=== PATIENT | male | born 1935 | race Caucasian/White ===

== ENCOUNTER 2018-04-08 16:27 | Observation (INO) ==
[2018-04-08 17:02] LABS: Basophils # 0.1 K/mcL (0.0-0.2); Basophils % 0.6 %; Eosinophils # 0.1 K/mcL (0.0-0.6); Hematocrit 43.9 % (37.5-50.1); Hemoglobin 14.4 g/dL (12.9-16.9); Immature Granulocytes % 0.1 % (0-4); Lymphocytes # 2.2 K/mcL (0.6-4.6); Lymphocytes % 28.5 %; Mean Corpuscular HGB Conc 32.8 g/dL (31.6-35.5); Mean Corpuscular Hemoglobin 31.8 pg (28.0-33.3); Mean Corpuscular Volume 96.9 fL (83.0-100.0); Mean Platelet Volume 10.1 fL (9.4-12.4); Monocytes # 0.9 K/mcL (0.0-1.3); Monocytes % 11.5 %; Neutrophils # 4.6 K/mcL (1.6-8.9); Platelet Count 249 K/mcL (140-400); Red Blood Count 4.53 M/mcL (4.19-5.50); Red Cell Distribution Width 15.4 % (11.5-14.5); Segmented Neutrophils % 58.3 %
[2018-04-08 17:25] LABS: Troponin I < 0.03 ng/mL (< 0.04)
[2018-04-08 17:30] LABS: Alanine Aminotransferase 20 Units/L (7-52); Albumin/Globulin Ratio 1.3 (1.1-2.2); Alkaline Phosphatase 60 Units/L (34-104); Aspartate Amino Transferase 28 Units/L (13-39); BUN/Creatinine Ratio 19 (6-26); Bilirubin,Total 0.5 mg/dL (0.3-1.0); Blood Urea Nitrogen 13 mg/dL (8-23); Calcium 8.5 mg/dL (8.6-10.3); Carbon Dioxide 27 mEq/L (23-29); Chloride 103 mEq/L (98-107); Glucose 95 mg/dL (70-105); Osmolality,Calculated 282 (280-300); Potassium 4.3 mEq/L (3.5-5.1); Sodium 136 mEq/L (136-145); eGFR For African Americans > 60 (> 60); eGFR For Non-African Americans > 60 (> 60)
--- NOTE | 2018-04-08 18:02 | Emergency Department Note ---
Disposition Clinical Impression: Chest pain, rule out acute myocardial infarction Chest pain Qualifiers: Chest pain type: unspecified Qualified Code(s): R07.9 - Chest pain, unspecified Disposition: Still a Patient Condition: Fair Time of Disposition: 20:18 Chest Pain HPI - General Chief Complaint: ED Chest Pain Stated Complaint: chest pain Time Seen by Provider: 04/08/18 16:44 Source: patient Limitations: no limitations - History of Present Illness HPI Narrative: Mr. Brown is an 83-year-old gentleman who presents from an appointment with Dr. Coe for c/o pressure-like chest pain 2-3 days that began while sitting down. His PMH is significant for [place] and CVA about 2 years ago; states he has been taking xarelto for about 1 year. His pain is located bilaterally across lower chest, is constant, and does not radiate to arms, neck, or jaw. He denies having similar chest pain in the past. Denies strenuous activity prior to or during onset of chest pain. Chest pain not worse with exertion and he does not endorse any aggravating factors; denies anything helps with chest pain. Reports associated nausea and increased fatigue for a few days prior to onset of chest pain. Associated symptoms of fevers, chills, confusion, lightheadedness, dizziness, shortness of breath, or dyspnea are denied. States his last cardiac stress test was about 1 year ago at [place]. Severity scale (1-10): 8 - Related Data Home Medications Medication Instructions Recorded Confirmed Alendronate Sodium [Fosamax] 70 mg PO QWEEK 04/08/18 04/08/18 Atorvastatin [Lipitor] 40 mg PO HS 04/08/18 04/08/18 Calcium Carb, Citrate/Vit D3 1 tab PO DAILY 04/08/18 04/08/18 [Calcium + D3 ER Tablet] OxyCODONE Immed Rel [Roxicodone 20 20 mg PO QID 04/08/18 04/08/18 MG] Rivaroxaban [Xarelto] 20 mg PO DAILY 04/08/18 04/08/18 Allergies Allergy/AdvReac Type Severity Reaction Status Date / Time lovastatin AdvReac Cramping Verified 04/08/18 18:34 of the Muscles All systems ED: reviewed and negative except as stated. Review of Systems: As Per HPI Constitutional: Reports: as per HPI. Denies: fever, chills Cardiovascular: Reports: as per HPI, chest pain. Denies: dyspnea on exertion, syncope Respiratory: Reports: as per HPI Gastrointestinal: Reports: as per HPI, nausea. Denies: vomiting Neurological: Reports: as per HPI. Denies: confusion Chest Pain PMH - Past Medical History Medical history: Reports: CVA, GERD, hyperlipidemia, hypertension, osteoporosis , other Psychiatric history: Reports: no psych history - Social History Smoking Status: Former smoker Alcohol use: Reports: occasionally Drug use: Reports: none Physical Exam - General Limitations: no limitations General appearance: alert - Head Head exam: atraumatic - Eye Eye exam: Present: normal appearance. Absent: scleral icterus - Neck Neck exam: Present: normal inspection - Chest Chest inspection: Present: normal inspection, symmetric chest wall rise. Absent : tenderness - Respiratory Respiratory exam: Present: normal lung sounds bilaterally. Absent: respiratory distress, wheezes - Cardiovascular Cardiovascular exam: Present: bradycardia (Sinus), normal heart sounds, +S1, +S2 - Abdominal Exam Abdominal exam: Present: soft, Non-Tender. Absent: distention, guarding, rebound, rigidity - Extremities Exam Extremities exam: Present: normal inspection, full ROM - Neurological Exam Neurological exam: Present: alert, oriented X3. Absent: motor sensory deficit - Psychiatric Psychiatric exam: Present: normal affect, normal mood - Skin Skin exam: Present: warm, dry, intact Course Vital Signs Temperature 97.7 F 04/08/18 16:36 Pulse Rate 50 04/08/18 16:36 Respiratory Rate 20 04/08/18 16:36 Blood Pressure 164/83 04/08/18 16:36 O2 Sat by Pulse Oximetry 97 04/08/18 16:36 Temperature 98.0 F 04/10/18 11:01 Pulse Rate 53 04/10/18 11:01 Respiratory Rate 17 04/10/18 11:01 Blood Pressure 154/67 04/10/18 11:01 O2 Sat by Pulse Oximetry 94 04/10/18 11:01 Oxygen Delivery Oxygen Delivery Room Air Chest Pain - MDM Narrative Medical decision making narrative: Mr. Brown is an 83-year-old gentleman PMH of KS and CVA on Xarelto presented to the emergency department with chest pain 2-3 days. EKG today shows changes from previous EKG including: mild ST elevation in leads III and aVF and TWI in lead aVF. Patient was given chewable 324mg aspirin in the department and placed on filter assembler. CBC and CMP within normal limits (calcium 8.5). First troponin < 0.03. Hospitalist Dr. Alexander contacted regarding admission for further care and management. Case discussed with on-call intrusion analyst Dr. Ralf Blanco. Heparin drip started in ED. - Medical Records Medical records reviewed: Yes I reviewed the patient's medical records. - Lab Data Lab results reviewed: Yes I reviewed the patient's lab results. Result diagrams: 04/10/18 06:36 04/10/18 06:36 Lab Results 04/08/18 04/08/18 04/08/18 Range/Units 16:47 16:47 16:47 WBC 7.8 (4.3-11.1) K/mcL RBC 4.53 (4.19-5.50) M/mcL Hgb 14.4 (12.9-16.9) g/dL Hct 43.9 (37.5-50.1) % MCV 96.9 (83.0-100.0) fL MCH 31.8 (28.0-33.3) pg MCHC 32.8 (31.6-35.5) g/dL RDW 15.4 H (11.5-14.5) % Plt Count 249 (140-400) K/mcL MPV 10.1 (9.4-12.4) fL Immature Gran % 0.1 (0-4) % Seg Neutrophils % 58.3 % Lymphocytes % 28.5 % Monocytes % 11.5 % Eosinophils % 1.0 % Basophils % 0.6 % Neutrophils # 4.6 (1.6-8.9) K/mcL Lymphocytes # 2.2 (0.6-4.6) K/mcL Monocytes # 0.9 (0.0-1.3) K/mcL Eosinophils # 0.1 (0.0-0.6) K/mcL Basophils # 0.1 (0.0-0.2) K/mcL PT 13.4 H (9.4-12.1) Seconds INR 1.2 APTT 31.5 (26.0-36.0) Seconds Sodium 136 (136-145) mEq/L Potassium 4.3 (3.5-5.1) mEq/L Chloride 103 (98-107) mEq/L Carbon Dioxide 27 (23-29) mEq/L BUN 13 (8-23) mg/dL Creatinine 0.70 (0.70-1.30) mg/dL Est GFR ( Amer) > 60 (> 60) Est GFR (Non-Af Amer) > 60 (> 60) BUN/Creatinine Ratio 19 (6-26) Glucose 95 (70-105) mg/dL Calculated Osmolality 282 (280-300) Calcium 8.5 L (8.6-10.3) mg/dL Total Bilirubin 0.5 (0.3-1.0) mg/dL AST 28 (13-39) Units/L ALT 20 (7-52) Units/L Alkaline Phosphatase 60 (34-104) Units/L Troponin I < 0.03 (< 0.04) ng/mL Serum Total Protein 7.0 (6.4-8.9) g/dL Albumin 4.0 (3.5-5.7) g/dL Globulin 3.0 (2.4-3.5) g/dL Albumin/Globulin Ratio 1.3 (1.1-2.2) - EKG Data EKG attestation: Yes I reviewed and interpreted this EKG. EKG results narrative: Comparison EKG 07/03/2016. Sinus bradycardia. First degree AV block. Multiple PACs and PVCs. Mild ST elevation leads III and aVF. TWI in aVF. Heart Score - Score History: Moderately Suspicious EKG: Significant ST-Depression Age: Greater than 65 Risk Factors: 1-2 risk factors Troponin: Less than normal limit HEART Score Total: 6
[2018-04-08] MEDS ORDERED: Aspirin 81 MG TAB.CHEW PO STA (18:05)
--- NOTE | 2018-04-08 18:10 | Emergency Department Note ---
Disposition Clinical Impression: Chest pain, rule out acute myocardial infarction Disposition: Admitted As Inpatient Condition: Fair Referrals: Beth Baker WEIGHT LOSS CENTRE MANAGER [Partnered Physician] - Forms: ED Satisfaction Letter Time of Disposition: 18:00 Chest Pain HPI - General Chief Complaint: ED Chest Pain Stated Complaint: chest pain Time Seen by Provider: 04/08/18 16:44 Source: patient Limitations: no limitations Vital Signs Reviewed: Yes Nursing Notes Reviewed: Yes - History of Present Illness Severity scale (1-10): 8 - Related Data Home Medications Medication Instructions Recorded Confirmed Atorvastatin [Lipitor] 40 mg PO DAILY 06/25/16 06/25/16 Calcium Carbonate/Vitamin D3 1 each PO DAILY 06/25/16 06/25/16 [Calcium 500 + D Tablet] Celecoxib [Celebrex] 200 mg PO DAILY 06/25/16 06/25/16 Docusate [Colace] 200 mg PO DAILY 06/25/16 06/25/16 Oxycodone HCl [Roxicodone 30 MG 30 mg PO Q4H 06/25/16 06/25/16 Immed Release] Sennosides [Senna] 8.6 mg PO DAILY 06/25/16 06/25/16 Previous Rx's Medication Instructions Recorded Lidocaine Patch [Lidoderm 5% patch] 1 each TP DAILY PRN #3 adh..patch 03/02/18 Orphenadrine [Norflex] 100 mg PO BID #6 tablet.er 03/02/18 Tramadol HCl [Ultram] 50 mg PO TID PRN 3 Days #9 tab 03/02/18 Allergies Allergy/AdvReac Type Severity Reaction Status Date / Time lovastatin AdvReac Cramping Verified 04/08/18 16:35 of the Muscles Chest Pain PMH - Past Medical History Medical history: Reports: CVA, GERD, hyperlipidemia, hypertension, osteoporosis , other Psychiatric history: Reports: no psych history - Social History Smoking Status: Former smoker Alcohol use: Reports: occasionally Drug use: Reports: none Physical Exam - General Limitations: no limitations General appearance: alert Course Vital Signs Temperature 97.7 F 04/08/18 16:36 Pulse Rate 50 04/08/18 16:36 Respiratory Rate 20 04/08/18 16:36 Blood Pressure 164/83 04/08/18 16:36 O2 Sat by Pulse Oximetry 97 04/08/18 16:36 Temperature 97.7 F 04/08/18 16:36 Pulse Rate 68 04/08/18 18:01 Respiratory Rate 20 04/08/18 18:01 Blood Pressure 130/97 04/08/18 18:01 O2 Sat by Pulse Oximetry 98 04/08/18 18:01 Oxygen Delivery Oxygen Delivery Room Air Chest Pain - Lab Data Result diagrams: 04/08/18 16:47 04/08/18 16:47 Lab Results 04/08/18 04/08/18 Range/Units 16:47 16:47 WBC 7.8 (4.3-11.1) K/mcL RBC 4.53 (4.19-5.50) M/mcL Hgb 14.4 (12.9-16.9) g/dL Hct 43.9 (37.5-50.1) % MCV 96.9 (83.0-100.0) fL MCH 31.8 (28.0-33.3) pg MCHC 32.8 (31.6-35.5) g/dL RDW 15.4 H (11.5-14.5) % Plt Count 249 (140-400) K/mcL MPV 10.1 (9.4-12.4) fL Immature Gran % 0.1 (0-4) % Seg Neutrophils % 58.3 % Lymphocytes % 28.5 % Monocytes % 11.5 % Eosinophils % 1.0 % Basophils % 0.6 % Neutrophils # 4.6 (1.6-8.9) K/mcL Lymphocytes # 2.2 (0.6-4.6) K/mcL Monocytes # 0.9 (0.0-1.3) K/mcL Eosinophils # 0.1 (0.0-0.6) K/mcL Basophils # 0.1 (0.0-0.2) K/mcL Sodium 136 (136-145) mEq/L Potassium 4.3 (3.5-5.1) mEq/L Chloride 103 (98-107) mEq/L Carbon Dioxide 27 (23-29) mEq/L BUN 13 (8-23) mg/dL Creatinine 0.70 (0.70-1.30) mg/dL Est GFR ( Amer) > 60 (> 60) Est GFR (Non-Af Amer) > 60 (> 60) BUN/Creatinine Ratio 19 (6-26) Glucose 95 (70-105) mg/dL Calculated Osmolality 282 (280-300) Calcium 8.5 L (8.6-10.3) mg/dL Total Bilirubin 0.5 (0.3-1.0) mg/dL AST 28 (13-39) Units/L ALT 20 (7-52) Units/L Alkaline Phosphatase 60 (34-104) Units/L Troponin I < 0.03 (< 0.04) ng/mL Serum Total Protein 7.0 (6.4-8.9) g/dL Albumin 4.0 (3.5-5.7) g/dL Globulin 3.0 (2.4-3.5) g/dL Albumin/Globulin Ratio 1.3 (1.1-2.2) Attestation Statement - Attestation Attestation: I, Ralf Gonzalez, examined this patient and my medical decision-making was reviewed with the ALMOND SORTER/PA/Advanced Practice Nurse/Resident Physician. I agree with the documented findings, disposition and treatment plan as described except to the extent set forth below. 83-year-old male presents emergency Department with concerns of chest pain. Patient was sent to the emergency department by his automotive paint technician for chest pain that was constant in the center of his chest. He reports associated nausea and increased fatigue over the past 2-3 days. Patient states his last stress test was one year ago at [facility]. He denies recent syncope. His Cymbalta was increased one week ago however his symptoms had started worsening prior to increasing his medication. Patient has not vomited he, he denies abdominal pain, diarrhea, rash, recent trauma. EKG shows a sinus bradycardia with multiple PVCs and PACs with and intraventricular conduction delay with flipped T-wave in lead aVF as well as ST elevation and downsloping in lead 3 and aVF. There is no corresponding ST depression and I do not believe that this is a STEMI. His pain has been constant over the past 2-3 days. Vital signs are stable in the emergency department. He had a negative initial troponin. Patient will be admitted to the hospitalist for further care and evaluation.
[2018-04-08] MEDS ORDERED: *HR* Heparin 5,000 UNIT/ML VIAL IVP ONE (18:16)
[2018-04-08] MEDS ORDERED: *HR* Heparin 5,000 UNIT/ML VIAL IVP PRN ×2 (18:16)
[2018-04-08] MEDS ORDERED: Heparin 25,000 UNIT/500 ML D5W 25,000 UNIT/500 ML BAG IVC SCH (18:30)
[2018-04-08 18:59] LABS: INR 1.2; Prothrombin Time 13.4 Seconds (9.4-12.1)
[2018-04-08 19:01] LABS: Activated Partial Thrombo Time 31.5 Seconds (26.0-36.0)
[2018-04-08] MEDS ORDERED: *HR* OxyCODONE Immed Rel 5 MG TABLET PO ONE (19:43)
--- NOTE | 2018-04-08 21:34 | Internal Med History&Physical ---
Date of Encounter: 04/08/18 Time of Encounter: 21:34 Internal Medicine - H&P: HPI Chief complaint: CP History of present illness: Mr. Brown is an 83-year-old male with PMH of [place] and CVA on xarelto presented to the emergency department with 3 days history of chest pain that is bilaterally located across lower chest, constant with no radiation to arms, neck, or jaw , no aggravating or alleviating factors associated nausea and increased fatigue. EKG today shows changes from previous EKG including: mild ST elevation in leads III and aVF and TWI in lead aVF. . First troponin < 0.03. . Heparin drip was started in ED. Past Med Surg Social Fam HX - Past Medical History Medical history: CVA, GERD, hyperlipidemia, hypertension, osteoporosis, other Psychiatric history: no psych history - Social History Smoking Status: Former smoker Smokeless Tobacco Status: No Alcohol use: occasionally Drug use: none Internal Medicine - H&P: Meds Alendronate Sodium [Fosamax] 70 mg PO QWEEK 04/08/18 [History] Atorvastatin [Lipitor] 40 mg PO HS 04/08/18 [History] Calcium Carb, Citrate/Vit D3 [Calcium + D3 ER Tablet] 1 tab PO DAILY 04/08/18 [ History] OxyCODONE Immed Rel [Roxicodone 20 MG] 20 mg PO QID 04/08/18 [History] Rivaroxaban [Xarelto] 20 mg PO DAILY 04/08/18 [History] 3 Allergy/AdvReac Type Severity Reaction Status Date / Time lovastatin AdvReac Cramping Verified 04/08/18 18:34 of the Muscles All Systems PM: A 10-system review of systems was performed and is negative for pertinent findings except as documented above in the HPI. - Constitutional Constitutional: fatigue, no chills, no fever(s), no night sweats - Cardiovascular Cardiovascular ROS IM: chest pain, dyspnea, no diaphoresis, no lightheadedness, no palpitations, no syncope - Respiratory Respiratory: dyspnea, no cough, no wheezing, no excessive phlegm production - Gastrointestinal Gastrointestinal: no abdominal pain, no diarrhea, no hematemesis, no hematochezia, no melena, no nausea, no vomiting - Neurological Neurological ROS: no confusion, no convulsions, no focal weakness, no numbness, no tingling, no tremor(s) - Constitutional Vitals: Temp Pulse Resp BP Pulse Ox 97.7 F 55 14 164/80 95 04/08/18 21:31 04/08/18 21:31 04/08/18 21:31 04/08/18 21:31 04/08/18 21:31 General appearance: Present: A&O X 3 - Head Head exam: Present: atraumatic, normocephalic - Neck Neck exam general surgery: Present: supple, trachea midline. Absent: lymphadenopathy - Respiratory Respiratory exam: Present: CTAB. Absent: accessory muscle use, rales, rhonchi, wheezes - Cardiovascular Cardiovascular exam: Present: RRR, +S1, +S2. Absent: diastolic murmur, gallop, rubs, systolic murmur - GI/Abdominal GI/Abdominal exam: Present: normal bowel sounds, soft, no peritoneal signs. Absent: distended, tenderness - Extremities Exam Extremities exam: Present: warm, radial pulses palpable and symmetrical. Absent : calf tenderness, cyanotic, pedal edema Internal Med - H&P Results - Labs CBC & Chem 7: 04/08/18 16:47 04/08/18 16:47 - Assessment and plan (1) Chest pain, rule out acute myocardial infarction Current Visit: Yes Status: Acute Assessment and plan: Chest pain with ECG changes R/O *CAD PLAN: - cardiac enzymes x 2 q 8 hr - EKG now and in AM - ASA - O2 by NC to keep SpO2 greater than 92% - UA - Urine toxic screen - CBCD, BMP in AM - Fasting lipids - Morphine 2 mg IV q 2-4 hr PRN chest pain - Tylenol 650 mg PO q 4-6 hr PRN headache - Home meds (check list) - Heparin drip - 2D Echo - Cardiology consult (2) Hypertension Current Visit: Yes Status: Acute Assessment and plan: Cont home meds. (3) Hyperlipidemia Current Visit: Yes Status: Acute Assessment and plan: Cont home meds, obtain FLP in AM (4) DVT prophylaxis Current Visit: Yes Status: Acute Assessment and plan: The patient was started on heparin drip for ACS. - Time Spent With Patient Total time spent is greater than 50% in coordination of care (as documented) at patient's floor/unit and/or counseling patient:
[2018-04-08] MEDS ORDERED: NON-FORMULARY MEDICATION 1 EACH EACH (Alendronate Sodium [Fosamax] 70 MG) PO SCH (22:45)
[2018-04-08] MEDS ORDERED: Acetaminophen 325 MG TABLET PO PRN (22:47)
[2018-04-08] MEDS ORDERED: Naloxone 0.4 MG/ML INJ IVP PRN (22:47)
[2018-04-08] MEDS ORDERED: *HR* HYDROcodone/Acet 5/325 mg TABLET PO PRN (22:47)
[2018-04-09] MEDS ORDERED: *HR* OxyCODONE Immed Rel 5 MG TABLET PO ONE (01:26)
[2018-04-09] MEDS ORDERED: *HR* Heparin 5,000 UNIT/ML VIAL SQ SCH (06:00)
[2018-04-09 06:38] LABS: Basophils % 0.6 %; Eosinophils # 0.2 K/mcL (0.0-0.6); Eosinophils % 2.6 %; Hematocrit 38.7 % (37.5-50.1); Hemoglobin 13.3 g/dL (12.9-16.9); Immature Granulocytes % 0.2 % (0-4); Lymphocytes # 2.4 K/mcL (0.6-4.6); Mean Corpuscular HGB Conc 34.4 g/dL (31.6-35.5); Mean Platelet Volume 10.7 fL (9.4-12.4); Monocytes % 14.4 %; Neutrophils # 3.1 K/mcL (1.6-8.9); Nucleated Red Blood Cells 0.3 /100 WBC (0); Platelet Count 233 K/mcL (140-400); Red Blood Count 4.03 M/mcL (4.19-5.50); Red Cell Distribution Width 15.1 % (11.5-14.5); Segmented Neutrophils % 46.2 %
[2018-04-09 07:00] LABS: Alanine Aminotransferase 17 Units/L (7-52); Albumin 3.6 g/dL (3.5-5.7); Albumin/Globulin Ratio 1.3 (1.1-2.2); Alkaline Phosphatase 57 Units/L (34-104); Aspartate Amino Transferase 22 Units/L (13-39); BUN/Creatinine Ratio 16 (6-26); Bilirubin,Total 0.5 mg/dL (0.3-1.0); Blood Urea Nitrogen 13 mg/dL (8-23); Calcium 8.8 mg/dL (8.6-10.3); Carbon Dioxide 28 mEq/L (23-29); Chloride 104 mEq/L (98-107); Chol/HDL Ratio 2.2 (0-4.9); Cholesterol 138 mg/dL (< 200); Globulin 2.7 g/dL (2.4-3.5); Glucose 82 mg/dL (70-105); HDL Cholesterol 63 mg/dL (40-59); LDL Cholesterol,Calculated 65 mg/dL (0-99); Magnesium 2.1 mg/dL (1.6-2.6); Osmolality,Calculated 287 (280-300); Phosphorous 3.7 mg/dL (2.7-4.5); Potassium 3.8 mEq/L (3.5-5.1); Sodium 139 mEq/L (136-145); Total Protein 6.3 g/dL (6.4-8.9); Triglycerides 49 mg/dL (< 150); eGFR For African Americans > 60 (> 60); eGFR For Non-African Americans > 60 (> 60)
[2018-04-09] MEDS: *HR* OxyCODONE Immed Rel 5 MG TABLET PO SCH ×4 (08:24→21:29)
--- NOTE | 2018-04-09 12:55 | Internal Med Progress Note ---
Date of Encounter: 04/09/18 Time of Encounter: 12:55 - Assessment and plan (1) Chest pain, rule out acute myocardial infarction Current Visit: Yes Status: Acute Assessment and plan: Troponins are negative 3 EKG with no acute changes I did discuss this case with cardiology LICENSED BONDSMAN Hugh House recommends cardiac stress test and consult cardiology as needed. Cardiac echo pending Patient will be LICENSED BONDSMAN after midnight and undergo nuclear stress test in the a.m. Heparin drip has been discontinued per recommendations of cardiology continue with Xarelto (2) Hypertension Current Visit: Yes Status: Chronic Assessment and plan: Stable Cont home meds. Qualifiers: Hypertension type: essential hypertension Qualified Code(s): I10 - Essential (primary) hypertension (3) Hyperlipidemia Current Visit: Yes Status: Acute Assessment and plan: Cont home statin Qualifiers: Hyperlipidemia type: unspecified Qualified Code(s): E78.5 - Hyperlipidemia , unspecified (4) DVT prophylaxis Current Visit: Yes Status: Acute Assessment and plan: Xarelto . - Time Spent With Patient Total time spent is greater than 50% in coordination of care (as documented) at patient's floor/unit and/or counseling patient: - Subjective Interval history: Patient was seen and examined at bedside. Presently patient has chest heaviness rates it a 1 or 2 out of 10 which she states has been constant midsternal nonradiating it has continued for the past few days. Discussed treatment plan patient verbalized agreement and understanding - Constitutional Vitals: Temp Pulse Resp BP Pulse Ox 98.1 F 59 16 112/63 94 04/09/18 11:13 04/09/18 11:13 04/09/18 11:13 04/09/18 11:13 04/09/18 11:13 General appearance: Present: A&O X 3 - Head Head exam: Present: atraumatic, normocephalic - Eye Eye exam: Present: PERRL, conjuntiva pink, sclera anicteric Pupils: Present: PERRL - Neck Neck exam general surgery: Present: supple, trachea midline. Absent: lymphadenopathy - Respiratory Respiratory exam: Present: CTAB. Absent: accessory muscle use, rales, rhonchi, wheezes - Cardiovascular Cardiovascular exam: Present: RRR, +S1, +S2. Absent: diastolic murmur, gallop, rubs, systolic murmur - GI/Abdominal GI/Abdominal exam: Present: normal bowel sounds, soft, no peritoneal signs. Absent: distended, tenderness - Extremities Exam Extremities exam: Present: warm, radial pulses palpable and symmetrical. Absent : calf tenderness, cyanotic, pedal edema - Neurological Exam Neurological exam: Present: CN II-XII intact, oriented X3, no focal deficits. Absent: pronater drift, facial droop, speech deficit - Skin Skin exam: Present: dry, intact Internal Medicine: Result - Labs CBC & Chem 7: 04/09/18 05:13 04/09/18 05:13 Labs: Short CBC 04/09/18 Range/Units 05:13 WBC 6.6 (4.3-11.1) K/mcL Hgb 13.3 (12.9-16.9) g/dL Hct 38.7 (37.5-50.1) % Plt Count 233 (140-400) K/mcL Neutrophils # 3.1 (1.6-8.9) K/mcL BMP 04/09/18 05:13 Sodium 139 Potassium 3.8 Chloride 104 Carbon Dioxide 28 BUN 13 Creatinine 0.82 Glucose 82 Calcium 8.8 Cardiac Enzymes 04/08/18 04/09/18 04/09/18 Range/Units 23:12 05:13 11:16 Troponin I 0.03 0.03 < 0.03 (< 0.04) ng/mL Liver Function 04/09/18 Range/Units 05:13 Total Bilirubin 0.5 (0.3-1.0) mg/dL AST 22 (13-39) Units/L ALT 17 (7-52) Units/L Alkaline Phosphatase 57 (34-104) Units/L Albumin 3.6 (3.5-5.7) g/dL - ABG Interpretation ABG results: PT/INR, D-dimer PT 13.4 Seconds (9.4-12.1) H 04/08/18 16:47 Consult Discharge Plan - Plan Referrals: Beth Baker CNP [Primary Care Provider] -
[2018-04-09] MEDS: *HR* Rivaroxaban 10 MG TABLET PO SCH (17:43)
[2018-04-10 00:27] LABS: Bilirubin,Urine Negative (Negative); Blood,Urine Negative (Negative); Clarity,Urine Clear (Clear); Color,Urine Yellow (Yellow); Glucose,Urine (UA) Normal (Normal); Ketones,Urine Negative (Negative); Leukocyte Esterase,Urine Negative (Negative); Nitrite,Urine Negative (Negative); Protein,Urine Negative (Neg-Trace); Specific Gravity,Urine 1.028 (1.010-1.025); Urobilinogen,Urine Normal (Normal)
[2018-04-10] MEDS ORDERED: Regadenoson 0.4 MG/5 ML SYRINGE IVP ONE (06:20)
[2018-04-10 07:26] LABS: BUN/Creatinine Ratio 20 (6-26); Blood Urea Nitrogen 14 mg/dL (8-23); Calcium 8.4 mg/dL (8.6-10.3); Carbon Dioxide 29 mEq/L (23-29); Chloride 105 mEq/L (98-107); Glucose 98 mg/dL (70-105); Osmolality,Calculated 288 (280-300); Potassium 4.1 mEq/L (3.5-5.1); Sodium 139 mEq/L (136-145); eGFR For African Americans > 60 (> 60); eGFR For Non-African Americans > 60 (> 60)
[2018-04-10 07:44] LABS: Basophils % 0.6 %; Eosinophils # 0.2 K/mcL (0.0-0.6); Eosinophils % 2.8 %; Hematocrit 37.1 % (37.5-50.1); Hemoglobin 12.6 g/dL (12.9-16.9); Immature Granulocytes % 0.3 % (0-4); Lymphocytes # 2.3 K/mcL (0.6-4.6); Lymphocytes % 32.5 %; Mean Corpuscular Hemoglobin 32.9 pg (28.0-33.3); Mean Corpuscular Volume 96.9 fL (83.0-100.0); Mean Platelet Volume 10.7 fL (9.4-12.4); Monocytes % 14.5 %; Neutrophils # 3.6 K/mcL (1.6-8.9); Platelet Count 235 K/mcL (140-400); Red Blood Count 3.83 M/mcL (4.19-5.50); Red Cell Distribution Width 15.5 % (11.5-14.5); Segmented Neutrophils % 49.3 %
--- NOTE | 2018-04-10 08:11 | Electrocardiograph Report ---
[place] [id number] Test Date: 2018-04-08 Pat Name: Ry Brown Department: 103 Room: 3B46 Gender: M Software Sales Executive: NICK : [id number] Requested By: Ralf Gonzalez Order Number: [id number] Reading MD: Terry Sampson Measurements Intervals [employer] Rate: 60 P: 37 AL: 305 QRS: 89 QRSD: 129 T: -57 QT: 427 QTc: 427 Interpretive Statements SINUS RHYTHM WITH FIRST DEGREE AV BLOCK OCCASIONAL VENTRICULAR PREMATURE COMPLEXES MODERATE INTRAVENTRICULAR CONDUCTION DELAY ST DEVIATION AND MODERATE T-WAVE ABNORMALITY, CONSIDER INFERIOR ISCHEMIA Electronically Signed On 04-10-2018 8:10:02 EDT by Terry Sampson
[2018-04-10] MEDS: *HR* Rivaroxaban 10 MG TABLET PO SCH (10:51)
[2018-04-10] MEDS: *HR* OxyCODONE Immed Rel 5 MG TABLET PO SCH (10:51)
[2018-04-10 11:02] VITALS: BP 154/67
--- NOTE | 2018-04-10 15:13 | Discharge Summary ---
- NOTES TO OUTPATIENT PROVIDER Notes to Outpatient Provider: Chest pain - stress test Perfusion imaging was negative for ischemia or infarct. Pharmacologic stress ECG is non diagnostic for ischemia due to baseline. non-specific ST and T abnormalities. Occasional PVCs. Gated EF = 51%. The left ventricle is mildly dilated. * Small sized, mild intensity primarily fixed perfusion defect involving the. apex. Wall motion is normal. Findings represent artifact. * Other segments demonstrate normal rest and stress perfusion. Orders not resulted at time of discharge: Pending orders 04/09/18 04:52 EKG [ECG 12 lead ECG] [ECG] Stat 04/09/18 06:00 ECG 12 lead ECG [ECG] AM 0600 04/09/18 16:31 NM dori perf SPECT multi [NM] Routine Date of Encounter: 04/10/18 Time of Encounter: 15:10 - Discharge Diagnosis (1) Chest pain, rule out acute myocardial infarction Priority: Primary Status: Acute (2) Hypertension Priority: Secondary Status: Chronic Qualifiers: Hypertension type: essential hypertension Qualified Code(s): I10 - Essential (primary) hypertension (3) Hyperlipidemia Priority: Secondary Status: Acute Qualifiers: Hyperlipidemia type: unspecified Qualified Code(s): E78.5 - Hyperlipidemia , unspecified Hospital course: Mr. Brown is a 83 year old male past medical history of CVA GERD hyperlipidemia hypertension chronic back pain. Patient was sent to the emergency department from Dr. Coe's office for complaints of pressure-like chest pain over the past 2-3 days. He does have a past history of CVA and has been on Cymbalta for approximately year. His last cardiac stress test was approximately 1 year ago troponins were negative 3 chest x-ray with no acute process. Cardiac echo shows EF of 50-55% mild left ventricular diastolic dysfunction normal right ventricular structure and function mild tricuspid regurgitation and mild pulmonic regurgitation and no pulmonary hypertension. EKG did show some PVCs first-degree AV block ST depression. He was initially started on a heparin drip however this was stopped and he was resumed Xarelto. He underwent a nuclear cardiac stress test which was negative for any ischemia or infarct- normal rest and stress perfusion. Patient is chest pain-free at this time. I did advise the patient follow up with interior specialist. He will follow-up with [facility] next week, advised patient to continue home medications and return if any chest pain. Patient verbalized understanding. He is hemodynamically stable and ready for discharge at this time. - Time Spent with Patient Total time spent providing and/or coordinating discharge services: - Discharge Medications Home Medications: Alendronate Sodium [Fosamax] 70 mg PO QWEEK 04/08/18 [History] Atorvastatin [Lipitor] 40 mg PO HS 04/08/18 [History] Calcium Carb, Citrate/Vit D3 [Calcium + D3 ER Tablet] 1 tab PO DAILY 04/08/18 [ History] OxyCODONE Immed Rel [Roxicodone 20 MG] 20 mg PO QID 04/08/18 [History] Rivaroxaban [Xarelto] 20 mg PO DAILY 04/08/18 [History] Allergies/Adverse Reactions: 3 Allergy/AdvReac Type Severity Reaction Status Date / Time lovastatin AdvReac Cramping Verified 04/08/18 18:34 of the Muscles Date of admission: 04/08/18 20:24 Primary care physician: Beth Baker CNP Discharging clinician: Cathleen Kay Anticipated date of discharge: 04/10/18 - Constitutional Vitals: Temp Pulse Resp BP Pulse Ox 98.0 F 53 17 154/67 94 04/10/18 11:01 04/10/18 11:01 04/10/18 11:01 04/10/18 11:01 04/10/18 11:01 General appearance: Present: A&O X 3 - Head Head exam: Present: atraumatic, normocephalic - Eye Eye exam: Present: PERRL, conjuntiva pink, sclera anicteric Pupils: Present: PERRL - Neck Neck exam general surgery: Present: supple, trachea midline. Absent: lymphadenopathy - Respiratory Respiratory exam: Present: CTAB. Absent: accessory muscle use, rales, rhonchi, wheezes - Cardiovascular Cardiovascular exam: Present: RRR, +S1, +S2. Absent: diastolic murmur, gallop, rubs, systolic murmur - GI/Abdominal GI/Abdominal exam: Present: normal bowel sounds, soft, no peritoneal signs. Absent: distended, tenderness - Extremities Exam Extremities exam: Present: warm, radial pulses palpable and symmetrical. Absent : calf tenderness, cyanotic, pedal edema - Neurological Exam Neurological exam: Present: CN II-XII intact, oriented X3, no focal deficits. Absent: pronater drift, facial droop, speech deficit - Skin Skin exam: Present: dry, intact - Patient Status Disposition: Home, Self-Care Condition: Fair Functional capacity at discharge: uses cane/walker Overall status at discharge: patient is back to baseline - Discharge Instructions Follow Up With: Beth Baker, LINE FISHER [Primary Care Provider] - Terry Sampson DO [Partnered Physician] - - Diet and Activity Activity: increase activity as tolerated Diet: low fat, low cholesterol
== END 2018-04-10 16:06 | disposition home or self-care (01) ==
LOC: EMEROO 16:27 → 3BNU 16:27
PROVIDERS: ADMIT Internal Medicine Nephrology; ATTEND Internal Medicine Nephrology

== ENCOUNTER 2019-07-12 12:21 | Observation (INO) ==
--- NOTE | 2019-07-12 13:37 | Emergency Department Note ---
Disposition Clinical Impression: Pulmonary embolism Qualifiers: Pulmonary embolism type: other Chronicity: acute Acute cor pulmonale presence: without acute cor pulmonale Qualified Code(s): I26.99 - Other pulmonary embolism without acute cor pulmonale Chest pain Qualifiers: Chest pain type: unspecified Qualified Code(s): R07.9 - Chest pain, unspecified Disposition: Admitted As Inpatient Condition: Fair Time of Disposition: 16:13 General Adult HPI - General Chief complaint: ED Chest Pain Stated complaint: Chest/Shoulder pain Time Seen by Provider: 07/12/19 13:33 Source: patient Mode of arrival: wheelchair Limitations: no limitations Nursing Notes Reviewed: Yes Vital Signs Reviewed: Yes - History of Present Illness HPI Narrative: Patient is an 84-year-old male with past medical history of CVA that occurred 4 years ago, GERD, HLD, HTN, former smoker, atrial fibrillation currently on Xarelto recently admitted for right hip fracture after a fall presenting to the ED for evaluation of chest pain has been going on since the fall but only getting worse. He describes it more so as a chest wall pain diffusely across her chest and aching that is a 9/10 on the pain scale worsened with movement and muscle use. Improves with sitting still and pain medication at home. States the pain has been consistent since his fall however just worsening which prompted his visit today. He was initially in an ECF for physical rehabilitation which she left early she felt that he is not being seen by a physician there. The chest pain is not associated with nausea, dyspnea, diaphoresis or exertion. Pain Scale: 8 - Related Data Home Medications Medication Instructions Recorded Confirmed Rivaroxaban [Xarelto] 20 mg PO QPM 04/08/18 07/12/19 Ranitidine HCl [Acid Dyeing Machine Feeder] 150 mg PO BID 07/04/19 07/12/19 Acetaminophen [Tylenol] 650 mg PO Q8H 07/05/19 07/12/19 Atorvastatin Calcium [Lipitor] 40 mg PO DAILY 07/05/19 07/12/19 Docusate Sodium [Dok] 200 mg PO DAILY 07/05/19 07/12/19 Previous Rx's Medication Instructions Recorded OxyCODONE Immed Rel [Roxicodone 30 30 mg PO Q6H PRN 2 Days #16 07/08/19 MG] Allergies Allergy/AdvReac Type Severity Reaction Status Date / Time lovastatin AdvReac Cramping Verified 07/12/19 12:41 of the Muscles All systems ED: reviewed and negative except as stated. Review of Systems: As Per HPI Constitutional: Denies: fever, chills Cardiovascular: Reports: chest pain. Denies: palpitations, dyspnea on exertion, edema, syncope, paroxysmal nocturnal dyspnea Respiratory: Denies: cough, dyspnea, wheezes Gastrointestinal: Denies: abdominal pain, nausea, vomiting, diarrhea, constipation Genitourinary: Denies: urgency, dysuria, frequency Musculoskeletal: Denies: back pain, neck pain Integumentary: Denies: rash, abrasion Past Medical History - Past Medical History Attestation: Yes The following information was validated with the patient. Medical history: Reports: atrial fibrillation, CVA, GERD, hyperlipidemia, hypertension, osteoporosis, other Surgical history: Reports: hip replacement, knee replacement, other Psychiatric history: Reports: no psych history - Social History Smoking Status: Former smoker Smokeless Tobacco Status: No Alcohol use: Reports: occasionally Drug use: Reports: none Physical Exam CONSTITUTIONAL: Well-appearing; well-nourished; A&O X 3, in no apparent distress HEAD: Normocephalic; atraumatic EYES: PERRL, no scleral icterus NOSE: The nose is normal in appearance without rhinorrhea NECK: No JVD or distended neck veins RESP: Normal chest excursion with respiration; breath sounds clear and equal bilaterally; no wheezes, rhonchi, or rales CARD: Regular rhythm, without murmurs, rub or gallop ABD: Non-distended; non-tender, soft, without rigidity, rebound or guarding,no pulsatile mass CHEST: Chest wall tenderness surrounding the sternum. SKIN: Normal for age and race; warm and dry without diaphoresis ; no apparent lesions EXTREMITIES: Pulses are 2 plus and equal times 4 extremities, no peripheral edema or calf muscle pain - General Limitations: no limitations General appearance: alert, in no apparent distress Course Course Narrative: Patient's symptoms were consistent with chest wall tenderness and possibly soreness from lifting himself status post right hip repair. However while undergoing his cardiac workup there is also concern for blood clot given his recent surgery and hospitalization. His CAT scan did reveal a - Reevaluation(s) Reevaluation #1: Solitary nonocclusive embolus in the posterior segmental right lower lobe with no evidence of infarct. Given this finding and the patient currently on anticoagulation which she is taking Xarelto 20 mg at night I consult did with heme/onc and spoke with Dasha Romero CNP who is front end loader operator equal opportunity representative for the physician front end loader operator. She discussed with the on-call physician for the treatment for this patient's pulmonary embolism and they recommended the patient be brought in for heparinization and also requested Dopplers of the bilateral lower extremities. I discussed these findings with the patient. Plan is to admit the patient to hospitalist at this time. Time: 16:16 Vital Signs Temperature 97.8 F 07/12/19 12:39 Pulse Rate 100 07/12/19 12:39 Respiratory Rate 18 07/12/19 12:39 Blood Pressure 137/72 07/12/19 12:39 O2 Sat by Pulse Oximetry 96 07/12/19 12:39 Temperature 97.8 F 07/12/19 20:21 Pulse Rate 66 07/12/19 20:21 Respiratory Rate 16 07/12/19 20:21 Blood Pressure 114/52 07/12/19 20:21 O2 Sat by Pulse Oximetry 92 07/12/19 20:21 Oxygen Delivery Oxygen Delivery Room Air Medical Decision Making - Medical Records Medical records reviewed: Yes I reviewed the patient's medical records. - Lab Data Lab results reviewed: Yes I reviewed the patient's lab results. Result diagrams: 07/12/19 13:33 07/12/19 13:33 Lab Results 07/12/19 07/12/19 07/12/19 Range/Units 13:33 13:33 13:33 WBC 7.4 (4.3-11.1) K/mcL RBC 3.99 L (4.19-5.50) M/mcL Hgb 12.4 L D (12.9-16.9) g/dL Hct 37.7 (37.5-50.1) % MCV 94.5 (83.0-100.0) fL MCH 31.1 (28.0-33.3) pg MCHC 32.9 (31.6-35.5) g/dL RDW 15.3 H (11.5-14.5) % Plt Count 428 H D (140-400) K/mcL MPV 9.9 (9.4-12.4) fL Immature Gran % 0.4 (0-4) % Seg Neutrophils % 68.4 % Lymphocytes % 13.2 % Monocytes % 15.1 % Eosinophils % 2.2 % Basophils % 0.7 % Neutrophils # 5.1 (1.6-8.9) K/mcL Lymphocytes # 1.0 (0.6-4.6) K/mcL Monocytes # 1.1 (0.0-1.3) K/mcL Eosinophils # 0.2 (0.0-0.6) K/mcL Basophils # 0.1 (0.0-0.2) K/mcL PT 18.3 H (9.4-12.1) Seconds INR 1.6 APTT 34.3 (26.0-36.0) Seconds D-Dimer (0-500) ng/mLFEU Heparin Anti-Xa, Unfract (0.30-0.70) IU/mL Sodium 136 (136-145) mEq/L Potassium 4.1 (3.5-5.1) mEq/L Chloride 97 L (98-107) mEq/L Carbon Dioxide 28 (23-29) mEq/L BUN 13 (8-23) mg/dL Creatinine 0.78 (0.70-1.30) mg/dL Est GFR ( Amer) > 60 (> 60) Est GFR (Non-Af Amer) > 60 (> 60) BUN/Creatinine Ratio 17 (6-26) Glucose 113 H (70-105) mg/dL Calculated Osmolality 283 (280-300) Calcium 9.1 (8.6-10.3) mg/dL Troponin I 0.03 (< 0.04) ng/mL 07/12/19 07/12/19 Range/Units 13:33 16:39 WBC (4.3-11.1) K/mcL RBC (4.19-5.50) M/mcL Hgb (12.9-16.9) g/dL Hct (37.5-50.1) % MCV (83.0-100.0) fL MCH (28.0-33.3) pg MCHC (31.6-35.5) g/dL RDW (11.5-14.5) % Plt Count (140-400) K/mcL MPV (9.4-12.4) fL Immature Gran % (0-4) % Seg Neutrophils % % Lymphocytes % % Monocytes % % Eosinophils % % Basophils % % Neutrophils # (1.6-8.9) K/mcL Lymphocytes # (0.6-4.6) K/mcL Monocytes # (0.0-1.3) K/mcL Eosinophils # (0.0-0.6) K/mcL Basophils # (0.0-0.2) K/mcL PT 16.2 H (9.4-12.1) Seconds INR 1.4 APTT (26.0-36.0) Seconds D-Dimer 2126 H (0-500) ng/mLFEU Heparin Anti-Xa, Unfract 1.01 H* (0.30-0.70) IU/mL Sodium (136-145) mEq/L Potassium (3.5-5.1) mEq/L Chloride (98-107) mEq/L Carbon Dioxide (23-29) mEq/L BUN (8-23) mg/dL Creatinine (0.70-1.30) mg/dL Est GFR ( Amer) (> 60) Est GFR (Non-Af Amer) (> 60) BUN/Creatinine Ratio (6-26) Glucose (70-105) mg/dL Calculated Osmolality (280-300) Calcium (8.6-10.3) mg/dL Troponin I (< 0.04) ng/mL - Radiology Data Radiology results reviewed: Yes I reviewed the patient's radiology results. Chest X-Ray 07/12/19 12:43 IMPRESSION: No evidence of acute process. Elevated left hemidiaphragm. D/ / Jesse Anrdt / Jesse Arndt Interpreting Provider: Jesse Arndt Chest CTA 07/12/19 14:39 IMPRESSION: 1. Solitary nonocclusive embolus in the posterior segmental right lower lobe pulmonary artery with no evidence of infarct 2. Trace pleural effusions and atelectasis in both lower lobes 3. Large left diaphragmatic hernia containing colon D/ / Henri Tony MD / Henri Tony MD Interpreting Provider: Henri Tony MD - EKG Data EKG #1 EKG attestation: Yes I reviewed and interpreted this EKG. EKG results narrative: EKG done at 12:46 shows atrial fibrillation at a rate of 78 bpm. Normal axis. Occasional PVC. T wave inversions in the inferior and lateral leads that are slightly increased from prior otherwise no ischemic changes
[2019-07-12] MEDS ORDERED: Morphine Sulfate Immed Rel 15 MG TABLET PO STA (13:54)
[2019-07-12 13:55] LABS: Basophils # 0.1 K/mcL (0.0-0.2); Basophils % 0.7 %; Eosinophils # 0.2 K/mcL (0.0-0.6); Eosinophils % 2.2 %; Hematocrit 37.7 % (37.5-50.1); Immature Granulocytes % 0.4 % (0-4); Lymphocytes % 13.2 %; Mean Corpuscular HGB Conc 32.9 g/dL (31.6-35.5); Mean Corpuscular Hemoglobin 31.1 pg (28.0-33.3); Mean Corpuscular Volume 94.5 fL (83.0-100.0); Mean Platelet Volume 9.9 fL (9.4-12.4); Monocytes # 1.1 K/mcL (0.0-1.3); Monocytes % 15.1 %; Neutrophils # 5.1 K/mcL (1.6-8.9); Platelet Count 428 K/mcL (140-400); Red Blood Count 3.99 M/mcL (4.19-5.50); Red Cell Distribution Width 15.3 % (11.5-14.5); Segmented Neutrophils % 68.4 %; White Blood Count 7.4 K/mcL (4.3-11.1)
[2019-07-12 14:07] LABS: INR 1.6; Prothrombin Time 18.3 Seconds (9.4-12.1)
[2019-07-12 14:10] LABS: Activated Partial Thrombo Time 34.3 Seconds (26.0-36.0)
[2019-07-12 14:20] LABS: Hemoglobin 12.4 g/dL (12.9-16.9)
[2019-07-12 14:27] LABS: BUN/Creatinine Ratio 17 (6-26); Blood Urea Nitrogen 13 mg/dL (8-23); Calcium 9.1 mg/dL (8.6-10.3); Carbon Dioxide 28 mEq/L (23-29); Chloride 97 mEq/L (98-107); Glucose 113 mg/dL (70-105); Osmolality,Calculated 283 (280-300); Potassium 4.1 mEq/L (3.5-5.1); Sodium 136 mEq/L (136-145); Troponin I 0.03 ng/mL (< 0.04); eGFR For African Americans > 60 (> 60); eGFR For Non-African Americans > 60 (> 60)
[2019-07-12] MEDS ORDERED: Isovue-370 500 ML BOTTLE IVP ONE (14:39)
[2019-07-12] MEDS ORDERED: *HR* Heparin 5,000 UNIT/ML VIAL IVP ONE (16:08)
[2019-07-12] MEDS ORDERED: *HR* Heparin 5,000 UNIT/ML VIAL IVP PRN ×2 (16:08)
[2019-07-12] MEDS ORDERED: Heparin 25,000 UNIT/250 ML D5W 25,000 UNIT/250 ML IV.SOLN IVC SCH (16:15)
--- NOTE | 2019-07-12 17:04 | Emergency Department Note ---
Disposition Clinical Impression: Pulmonary embolism Qualifiers: Pulmonary embolism type: unspecified Chronicity: acute Acute cor pulmonale presence: without acute cor pulmonale Qualified Code(s): I26.99 - Other pulmonary embolism without acute cor pulmonale Chest pain Qualifiers: Chest pain type: unspecified Qualified Code(s): R07.9 - Chest pain, unspecified Disposition: Admitted As Inpatient Condition: Fair Referrals: Beth Baker BLACKTOP SPREADER [Primary Care Provider] - Forms: ED Satisfaction Letter Time of Disposition: 17:05 General Adult HPI - General Chief complaint: ED Chest Pain Stated complaint: Chest/Shoulder pain Time Seen by Provider: 07/12/19 13:33 Source: patient Mode of arrival: wheelchair Limitations: no limitations - History of Present Illness Pain Scale: 10 - Related Data Home Medications Medication Instructions Recorded Confirmed Rivaroxaban [Xarelto] 20 mg PO QPM 04/08/18 07/05/19 Ranitidine HCl [Acid Mortgage Advisor] 150 mg PO BID 07/04/19 07/05/19 Acetaminophen [Tylenol] 650 mg PO Q8H 07/05/19 07/05/19 Atorvastatin Calcium [Lipitor] 40 mg PO DAILY 07/05/19 07/05/19 Docusate Sodium [Dok] 200 mg PO DAILY 07/05/19 07/05/19 Previous Rx's Medication Instructions Recorded Doxycycline 100 mg PO BID 12 Days #24 capsule 07/08/19 OxyCODONE Immed Rel [Roxicodone 30 30 mg PO Q6H PRN 2 Days #16 07/08/19 MG] Allergies Allergy/AdvReac Type Severity Reaction Status Date / Time lovastatin AdvReac Cramping Verified 07/12/19 12:41 of the Muscles Constitutional: Denies: fever, chills Cardiovascular: Reports: chest pain. Denies: palpitations, dyspnea on exertion, edema, syncope, paroxysmal nocturnal dyspnea Respiratory: Denies: cough, dyspnea, wheezes Gastrointestinal: Denies: abdominal pain, nausea, vomiting, diarrhea, constipation Genitourinary: Denies: urgency, dysuria, frequency Musculoskeletal: Denies: back pain, neck pain Integumentary: Denies: rash, abrasion Past Medical History - Past Medical History Medical history: Reports: atrial fibrillation, CVA, GERD, hyperlipidemia, hypertension, osteoporosis, other Surgical history: Reports: hip replacement, knee replacement, other Psychiatric history: Reports: no psych history - Social History Smoking Status: Former smoker Smokeless Tobacco Status: No Alcohol use: Reports: occasionally Drug use: Reports: none Physical Exam - General Limitations: no limitations General appearance: alert, in no apparent distress Course Vital Signs Temperature 97.8 F 07/12/19 12:39 Pulse Rate 100 07/12/19 12:39 Respiratory Rate 18 07/12/19 12:39 Blood Pressure 137/72 07/12/19 12:39 O2 Sat by Pulse Oximetry 96 07/12/19 12:39 Temperature 97.8 F 07/12/19 12:39 Pulse Rate 76 07/12/19 14:17 Respiratory Rate 18 07/12/19 14:17 Blood Pressure 119/75 07/12/19 14:17 O2 Sat by Pulse Oximetry 94 07/12/19 14:17 Oxygen Delivery Oxygen Delivery Room Air Medical Decision Making - Lab Data Result diagrams: 07/12/19 13:33 07/12/19 13:33 Lab Results 07/12/19 07/12/19 07/12/19 Range/Units 13:33 13:33 13:33 WBC 7.4 (4.3-11.1) K/mcL RBC 3.99 L (4.19-5.50) M/mcL Hgb 12.4 L D (12.9-16.9) g/dL Hct 37.7 (37.5-50.1) % MCV 94.5 (83.0-100.0) fL MCH 31.1 (28.0-33.3) pg MCHC 32.9 (31.6-35.5) g/dL RDW 15.3 H (11.5-14.5) % Plt Count 428 H D (140-400) K/mcL MPV 9.9 (9.4-12.4) fL Immature Gran % 0.4 (0-4) % Seg Neutrophils % 68.4 % Lymphocytes % 13.2 % Monocytes % 15.1 % Eosinophils % 2.2 % Basophils % 0.7 % Neutrophils # 5.1 (1.6-8.9) K/mcL Lymphocytes # 1.0 (0.6-4.6) K/mcL Monocytes # 1.1 (0.0-1.3) K/mcL Eosinophils # 0.2 (0.0-0.6) K/mcL Basophils # 0.1 (0.0-0.2) K/mcL PT 18.3 H (9.4-12.1) Seconds INR 1.6 APTT 34.3 (26.0-36.0) Seconds D-Dimer (0-500) ng/mLFEU Sodium 136 (136-145) mEq/L Potassium 4.1 (3.5-5.1) mEq/L Chloride 97 L (98-107) mEq/L Carbon Dioxide 28 (23-29) mEq/L BUN 13 (8-23) mg/dL Creatinine 0.78 (0.70-1.30) mg/dL Est GFR ( Amer) > 60 (> 60) Est GFR (Non-Af Amer) > 60 (> 60) BUN/Creatinine Ratio 17 (6-26) Glucose 113 H (70-105) mg/dL Calculated Osmolality 283 (280-300) Calcium 9.1 (8.6-10.3) mg/dL Troponin I 0.03 (< 0.04) ng/mL 07/12/19 Range/Units 13:33 WBC (4.3-11.1) K/mcL RBC (4.19-5.50) M/mcL Hgb (12.9-16.9) g/dL Hct (37.5-50.1) % MCV (83.0-100.0) fL MCH (28.0-33.3) pg MCHC (31.6-35.5) g/dL RDW (11.5-14.5) % Plt Count (140-400) K/mcL MPV (9.4-12.4) fL Immature Gran % (0-4) % Seg Neutrophils % % Lymphocytes % % Monocytes % % Eosinophils % % Basophils % % Neutrophils # (1.6-8.9) K/mcL Lymphocytes # (0.6-4.6) K/mcL Monocytes # (0.0-1.3) K/mcL Eosinophils # (0.0-0.6) K/mcL Basophils # (0.0-0.2) K/mcL PT (9.4-12.1) Seconds INR APTT (26.0-36.0) Seconds D-Dimer 2126 H (0-500) ng/mLFEU Sodium (136-145) mEq/L Potassium (3.5-5.1) mEq/L Chloride (98-107) mEq/L Carbon Dioxide (23-29) mEq/L BUN (8-23) mg/dL Creatinine (0.70-1.30) mg/dL Est GFR ( Amer) (> 60) Est GFR (Non-Af Amer) (> 60) BUN/Creatinine Ratio (6-26) Glucose (70-105) mg/dL Calculated Osmolality (280-300) Calcium (8.6-10.3) mg/dL Troponin I (< 0.04) ng/mL Attestation Statement - Attestation Attestation: I reviewed the residents documentation and agree with the residents assessment and plan of care. I have personally had face to face time with the patient. (Brief History, Brief Exam, and MDM) I personally supervised and was present for the kam/critical portions of the following procedures completed by the resident: EKG 84 year old male prsents ot the ED with complanitso chest pain and most recently had a right hip surgery and it appears he now has an elevated D-dimer and CTA chest had confrimed PE in the RLL. Ashkan was tachycardiac on initiral presentation but was not hypoxic. We will start heparin therapy now after discu ssing the case with hem/onc as he is currently on xarelto therapy. Hem/onc recommednd DVT US and heparint herapy and admit to medicine.
[2019-07-12 17:07] LABS: INR 1.4; Prothrombin Time 16.2 Seconds (9.4-12.1)
[2019-07-12 17:18] LABS: Heparin anti-factor XA UFH 1.01 IU/mL (0.30-0.70)
[2019-07-12] MEDS ORDERED: Naloxone 0.4 MG/ML INJ IVP PRN (18:04)
--- NOTE | 2019-07-12 18:09 | Internal Med History&Physical ---
Date of Encounter: 07/12/19 Time of Encounter: 18:07 Internal Medicine - H&P: HPI Chief complaint: Chest pain Admitted From: Home Plans for Post Hospital Care: Home History of present illness: Mr. Brown is a 84 year old male past medical history of, OA status post remote right knee replacement and right hip replacement a week ago , A. fib on Xarelto and a CVA without residual weakness. He presented with 5 days of worsening pleuritic chest pain with associated shortness of breath on exertion. He he rates pain as above 8/10 nonradiating, predominantly on the right side with no relieving factors. Patient had his right knee replaced last week and it has been undergoing rehabilitation without difficulty. He denies fever, chills and cough. Past Med Surg Social Fam HX - Past Medical History Medical history: atrial fibrillation, CVA, GERD, hyperlipidemia, hypertension, osteoporosis, other Additional medical history: HX OF MRSA , RT DROP FOOT, [place] Psychiatric history: no psych history - Past Surgical History Surgical History: hip replacement, knee replacement, other Additional surgical history: BULLET WOUNDS - Social History Smoking Status: Former smoker Smokeless Tobacco Status: No Alcohol use: occasionally Drug use: none - Family History Father Family Member Ethnicity: Non- Living Status: Hx Family Neurologic Disorders: Yes (CVA) Mother Family Member Ethnicity: Non- Living Status: Hx Family Cardiac Disorders: Yes (CAD) Brother Family Member Ethnicity: Non- Living Status: Hx Family Cardiac Disorders: Yes (SD, CABG) Sister Family Member Ethnicity: Non- Living Status: Hx Family Cardiac Disorders: Yes (Heart failure) Internal Medicine - H&P: Meds Rivaroxaban [Xarelto] 20 mg PO QPM 04/08/18 [History] Ranitidine HCl [Acid Seafood Harvester] 150 mg PO BID 07/04/19 [History] Acetaminophen [Tylenol] 650 mg PO Q8H 07/05/19 [History] Atorvastatin Calcium [Lipitor] 40 mg PO DAILY 07/05/19 [History] Docusate Sodium [Dok] 200 mg PO DAILY 07/05/19 [History] OxyCODONE Immed Rel [Roxicodone 30 MG] 30 mg PO Q6H PRN 2 Days #16 07/08/19 [Rx] Allergy/AdvReac Type Severity Reaction Status Date / Time lovastatin AdvReac Cramping Verified 07/12/19 12:41 of the Muscles All Systems PM: A 10-system review of systems was performed and is negative for pertinent findings except as documented above in the HPI. Review of systems: GENERAL: No fever or chills HEENT: No rhinorrhea, No sore throat, No ear pain or discharge, No dysphagia or odynophagia PULMONARY: No cough,, No Sputum production, CARDIOVASCULAR: no palpitations,, No PND, No orthopnea GASTROINTESTINAL: No abdominal pain, No nausea, No vomiting, No constipation, No diarrhea, No hematemesis, No hematochezia MUSKULOSKELETAL: No edema, No swelling, No pain INTEGUMENTARY: No new skin lesions NERVOUS SYSTEM: No Dizziness, No weakness, No slurred speech, No diplopia or blurred/ loss vision, No numbness, No tinglng sensation. - Constitutional Vitals: Temp Pulse Resp BP Pulse Ox 36.6 C 76 18 97/73 94 07/12/19 12:39 07/12/19 14:17 07/12/19 18:01 07/12/19 18:01 07/12/19 14:17 Exam: GENERAL: Not in distress. Alert and Oriented HEENT: EOMI, PERRLA MOUTH: Good oral hygiene NECK:No JVD, No lymph nodes. CHEST AND LUNGS: Normal breath sounds, no wheezes or crackles HEART: S1 and S2 normal, no murmurs ABDOMEN: Soft, nontender, no organomegaly SKIN: Normal color, no rahses, no lesions EXTREMITIES: Longitudinal surgical scar on right knee. Dressing over right hip looks clean. NEUROLOGICAL: Normal cognition, normal motor and sensory exam. Internal Med - H&P Results - Labs CBC & Chem 7: 07/12/19 13:33 07/12/19 13:33 Labs: Short CBC 07/12/19 Range/Units 13:33 WBC 7.4 (4.3-11.1) K/mcL Hgb 12.4 L D (12.9-16.9) g/dL Hct 37.7 (37.5-50.1) % Plt Count 428 H D (140-400) K/mcL Neutrophils # 5.1 (1.6-8.9) K/mcL BMP 07/12/19 13:33 Sodium 136 Potassium 4.1 Chloride 97 L Carbon Dioxide 28 BUN 13 Creatinine 0.78 Glucose 113 H Calcium 9.1 Cardiac Enzymes 07/12/19 Range/Units 13:33 Troponin I 0.03 (< 0.04) ng/mL - Impressions ITS Impressions Chest X-Ray 07/12/19 12:43 IMPRESSION: No evidence of acute process. Elevated left hemidiaphragm. D/ / Jesse Arndt / Jesse Arndt Interpreting Provider: Jesse Arndt Chest CTA 07/12/19 14:39 IMPRESSION: 1. Solitary nonocclusive embolus in the posterior segmental right lower lobe pulmonary artery with no evidence of infarct 2. Trace pleural effusions and atelectasis in both lower lobes 3. Large left diaphragmatic hernia containing colon D/ / Henri Tony MD / Henri Tony MD Interpreting Provider: Henri Tony MD - Assessment and Plan (1) Pulmonary embolism Current Visit: Yes Status: Acute Assessment and plan: CT scan findings: Solitary nonocclusive embolus in the posterior segment of the right lower lobe pulmonary artery with no evidence of infarct. Patient has been taking Xarelto for A. fib and states that he has been compl iant. We will keep him on heparin drip and transition to oral anticoagulation tomorrow. Qualifiers: Pulmonary embolism type: other Chronicity: acute Acute cor pulmonale presence: without acute cor pulmonale Qualified Code(s): I26.99 - Other pulmonary embolism without acute cor pulmonale (2) Afib Current Visit: No Status: Acute Assessment and plan: He has a history of A. fib On physical exam on my encounter he had a regular rate and rhythm. We will continue rate control medication and heparin drip for now. Qualifiers: Atrial fibrillation type: chronic Qualified Code(s): I48.2 - Chronic atrial fibrillation (3) History of CVA (cerebrovascular accident) Current Visit: Yes Status: Acute Assessment and plan: Patient has a history of CVA. He states this is A. fib was diagnosed at the time of his CVA and was started on Xareltowith which he has been compliant. He has no residual deficits from CVA. We will monitor (4) DVT prophylaxis Current Visit: No Status: Acute Assessment and plan: Heparin drip - Time Spent With Patient Total time spent is greater than 50% in coordination of care (as documented) at patient's floor/unit and/or counseling patient:
[2019-07-12] MEDS ORDERED: Acetaminophen IV 1,000 MG/100 ML INFUS..BTL IVPB ONE (21:15)
--- NOTE | 2019-07-12 23:46 | Electrocardiograph Report ---
[facility] Test Date: 2019-07-12 Pat Name: Ry Brown Department: 104 Room: 2NE22 Gender: M Bar Back: : 1935 Requested By: Lucía Gonzalez Order Number: [id number] Reading MD: Sunny Post Measurements Intervals [place] Rate: 78 P: [place]: 0 QRS: 98 QRSD: 109 T: -60 QT: 411 QTc: 444 Interpretive Statements ATRIAL FIBRILLATION WITH ABERRANT CONDUCTION OR VENTRICULAR PREMATURE COMPLEXES BORDERLINE RIGHT AXIS DEVIATION ST DEVIATION AND MODERATE T-WAVE ABNORMALITY, CONSIDER ANTEROLATERAL ISCHEMIA ST DEVIATION AND MODERATE T-WAVE ABNORMALITY, CONSIDER INFERIOR ISCHEMIA Electronically Signed On 07-12-2019 23:44:40 EDT by Sunny Post
[2019-07-13] MEDS: *HR* OxyCODONE Immed Rel 15 MG TABLET PO PRN ×4 (00:12→21:38)
[2019-07-13] MEDS: Heparin 25,000 UNIT/250 ML D5W 25,000 UNIT/250 ML IV.SOLN IVC SCH ×2 (00:14→15:30)
[2019-07-13] MEDS: Famotidine 20 MG TABLET PO SCH ×2 (08:43→18:10)
--- NOTE | 2019-07-13 09:39 | Internal Med Progress Note ---
Hospitalist Progress Note - Encounter Date of Encounter: 07/13/19 Time of Encounter: 09:00 - Subjective Interval History: No acute events overnight - Exam Vitals: Temp Pulse Resp BP Pulse Ox 97.6 F 47 17 103/68 90 07/13/19 07:47 07/13/19 07:47 07/13/19 07:47 07/13/19 07:47 07/13/19 07:47 Exam: GENERAL: Not in distress. Alert and Oriented HEENT: EOMI, PERRLA MOUTH: Good oral hygiene NECK:No JVD, No lymph nodes. CHEST AND LUNGS: Normal breath sounds, no wheezes or crackles HEART: S1 and S2 normal, no murmurs ABDOMEN: Soft, nontender, no organomegaly SKIN: Normal color, no rahses, no lesions EXTREMITIES: Longitudinal surgical scar on right knee. Dressing over right hip looks clean. NEUROLOGICAL: Normal cognition, normal motor and sensory exam. - Assessment and Plan (1) Pulmonary embolism Current Visit: Yes Status: Acute Assessment and Plan: CT scan findings: Solitary nonocclusive embolus in the posterior segment of the right lower lobe pulmonary artery with no evidence of infarct. Patient has been taking Xarelto for A. fib and states that he has been compliant. We will keep him on heparin drip. Hematology and vascular surgery for anticoa gulation mgmt/ IVC filter placement (2) Afib Current Visit: Yes Status: Acute Assessment and Plan: He has a history of A. fib On physical exam on my encounter he had a regular rate and rhythm. We will continue rate control medication and heparin drip for now. (3) History of CVA (cerebrovascular accident) Current Visit: Yes Status: Acute Assessment and Plan: Patient has a history of CVA. He states this is A. fib was diagnosed at the time of his CVA and was started on Xarelto with which he has been compliant. Continue xarelto for afib and statin therapy (4) DVT prophylaxis Current Visit: Yes Status: Acute Assessment and Plan: Heparin drip - Time Spent with Patient Total time spent is greater than 50% in coordination of care (as documented) at patient's floor/unit and/or counseling patient: Internal Medicine: Result - Labs CBC & Chem 7: 07/12/19 13:33 07/12/19 13:33 Labs: Short CBC 07/12/19 Range/Units 13:33 WBC 7.4 (4.3-11.1) K/mcL Hgb 12.4 L D (12.9-16.9) g/dL Hct 37.7 (37.5-50.1) % Plt Count 428 H D (140-400) K/mcL Neutrophils # 5.1 (1.6-8.9) K/mcL BMP 07/12/19 13:33 Sodium 136 Potassium 4.1 Chloride 97 L Carbon Dioxide 28 BUN 13 Creatinine 0.78 Glucose 113 H Calcium 9.1 Cardiac Enzymes 07/12/19 Range/Units 13:33 Troponin I 0.03 (< 0.04) ng/mL - ABG Interpretation ABG results: PT/INR, D-dimer PT 16.2 Seconds (9.4-12.1) H 07/12/19 16:39 D-Dimer 2126 ng/mLFEU (0-500) H 07/12/19 13:33 - Impressions Impressions Chest X-Ray 07/12/19 12:43 IMPRESSION: No evidence of acute process. Elevated left hemidiaphragm. D/ / Jesse Arndt / Jesse Arndt Interpreting Provider: Jesse Arndt Chest CTA 07/12/19 14:39 IMPRESSION: 1. Solitary nonocclusive embolus in the posterior segmental right lower lobe pulmonary artery with no evidence of infarct 2. Trace pleural effusions and atelectasis in both lower lobes 3. Large left diaphragmatic hernia containing colon D/ / Henri Tony MD / Henri Tony MD Interpreting Provider: Henri Tony MD Consult Discharge Plan - Plan Referrals: Beth Baker, ROLLING MACHINE TENDER [Primary Care Provider] - (1) Pulmonary embolism Qualifiers: Pulmonary embolism type: other Chronicity: acute Acute cor pulmonale presence: without acute cor pulmonale Qualified Code(s): I26.99 - Other pulmonary embolism without acute cor pulmonale (2) Afib Qualifiers: Atrial fibrillation type: chronic Qualified Code(s): I48.2 - Chronic atrial fibrillation
--- NOTE | 2019-07-13 15:04 | Oncology Inp Consult Note ---
<Dasha Romeor - Last Filed: 07/13/19 17:03> Date of Encounter: 07/13/19 Time of Encounter: 13:45 Assessment and Plan (1) Pulmonary embolism Status: Acute Assessment and plan: Acute PE. On Heparin drip. Home Xarelto 20 mg PO daily held. Qualifiers: Pulmonary embolism type: other Chronicity: acute Acute cor pulmonale presence: without acute cor pulmonale Qualified Code(s): I26.99 - Other pulmonary embolism without acute cor pulmonale (2) Chest pain Status: Acute Assessment and plan: c/o chest pain, rating 9 out of 10 Continues on 2L O2 per NC. Non-occlusive PE noted on CTA chest 07/12/19. On Heparin drip. Qualifiers: Chest pain type: unspecified Qualified Code(s): R07.9 - Chest pain, unspecified (3) Afib Status: Acute Assessment and plan: History of atrial fibrillation. HR 60's on telemetry during assessment. Patient noted that HR drops to 40-50's while sleeping. Continue on telemetry. Qualifiers: Atrial fibrillation type: chronic Qualified Code(s): I48.2 - Chronic atrial fibrillation - Data of Consult Patient: new to practice Consult date: 07/12/19 Requesting Physician: Janice Abrams MD Primary Care Provider: Beth Baker CNP - Consult Narrative Reason for consult: PE while on Xarelto for atrial fibrillation History of present illness: Mr. Ry Brown, an 84 yo male with history of CVA, atrial fibrillation, HTN, HLD, GERD, and osteoporosis, presented to the emergency room with chest pain on 07/12/19. He notes that he was discharged to a rehabilitation facility last week after a fall that required surgical intervention for his right hip fracture. He remained in rehab for four days without seeing a physician. He states that he was upset and decided to leave the rehab facility. He notes that he had chest pain with his recent hospitalization, but he was at home when his chest pain began to worsen. During ED evaluation, his CTA chest noted a partially occlusive pulmonary emboli to the RLL, without infarct. Mr. Brown notes that he has been on Xarelto 20 mg PO daily for his atrial fibrillation and history of CVA. He notes compliance with Xarelto at home. He is awake, sitting in bed this afternoon. He is on 2L O2 per NC. He states that he is not normally on oxygen at home. O2 saturations decreasing to 82-88% while conversing. He denies shortness of breath. Does c/o chest pain, rating it as 9 out of 10 today. He denies hematuria, hematochezia, or melena with home Xarelto, and now with heparin drip. He notes mild pain to right hip, but states that it is better than expected, especially while resting in bed. He denies fever or chills. He does notes that due to his CVA he has trouble comprehending and retaining information. Social history: Lives at home in [place], [place] Grandson does live nearby and will assist with property and needs. Former smoker. Past Med Surg Social Fam HX - Past Medical History Medical history: atrial fibrillation, CVA, GERD, hyperlipidemia, hypertension, osteoporosis, other Additional medical history: HX OF MRSA , RT DROP FOOT, [place] Psychiatric history: no psych history - Past Surgical History Surgical History: hip replacement, knee replacement, other Additional surgical history: BULLET WOUNDS - Social History Smoking Status: Former smoker Smokeless Tobacco Status: No Alcohol use: occasionally Drug use: none - Family History Father Family Member Ethnicity: Non- Living Status: Hx Family Neurologic Disorders: Yes (CVA) Mother Family Member Ethnicity: Non- Living Status: Hx Family Cardiac Disorders: Yes (CAD) Brother Family Member Ethnicity: Non- Living Status: Hx Family Cardiac Disorders: Yes ([place], CABG) Sister Family Member Ethnicity: Non- Living Status: Hx Family Cardiac Disorders: Yes (Heart failure) Medications and Allergies Rivaroxaban [Xarelto] 20 mg PO QPM 04/08/18 [History] Ranitidine HCl [Acid Supervisor [employer]ing [employer] Pasting] 150 mg PO BID 07/04/19 [History] Acetaminophen [Tylenol] 650 mg PO Q8H 07/05/19 [History] Atorvastatin Calcium [Lipitor] 40 mg PO DAILY 07/05/19 [History] Docusate Sodium [Dok] 200 mg PO DAILY 07/05/19 [History] OxyCODONE Immed Rel [Roxicodone 30 MG] 30 mg PO Q6H PRN 2 Days #16 07/08/19 [Rx] Allergy/AdvReac Type Severity Reaction Status Date / Time lovastatin AdvReac Cramping Verified 07/13/19 13:10 of the Muscles Constitutional: Absent: chills, fever(s) Additional comments: recent fall Cardiovascular: Present: chest pain, chest pain at rest, slow heart rate. Absent: dyspnea Additional comments: hx of atrial fibrillation. HR 60s on telemetry. Notes that HR will drop to 40s while sleeping. Respiratory: Absent: dyspnea, hemoptysis, wheezing, chest congestion Gastrointestinal: Absent: abdominal pain, constipation, diarrhea, hematochezia, melena, nausea, vomiting Additional comments: Right hip hemiarthroplasty Oncology - Exam - Constitutional General appearance: cooperative, thin - Respiratory Respiratory exam: Present: decreased breath sounds. Absent: rhonchi, wheezes Additional comments: 2L O2 per NC - Cardiovascular Cardiovascular exam: Present: irregular rhythm Additional comments: HR 60s on telemetry - GI/Abdominal GI/Abdominal exam: Present: normal bowel sounds, soft. Absent: tenderness - Neurological Exam Neurological exam: Present: alert, oriented X3. Absent: facial droop, speech d eficit - Psychiatric Psychiatric exam: Present: normal affect, normal mood - Skin Skin exam: Present: dry, pallor Oncology Inpatient Results Labs: Laboratory Results - last 24 hr 07/12/19 07/12/19 07/13/19 16:39 23:06 06:05 PT 16.2 H INR 1.4 APTT 93.1 H D 78.0 H Heparin Anti-Xa, Unfract 1.01 H* Chest X-Ray 07/12/19 12:43 IMPRESSION: No evidence of acute process. Elevated left hemidiaphragm. D/ / Jesse Arndt / Jesse Arndt Interpreting Provider: Jesse Arndt Chest CTA 07/12/19 14:39 IMPRESSION: 1. Solitary nonocclusive embolus in the posterior segmental right lower lobe pulmonary artery with no evidence of infarct 2. Trace pleural effusions and atelectasis in both lower lobes 3. Large left diaphragmatic hernia containing colon D/ / Henri Tony MD / Henri Tony MD Interpreting Provider: Henri Tony MD Consult Discharge Plan - Plan Referrals: Beth Baker CNP [Primary Care Provider] - Inpatient Charges Provider: Dr. Deja Mcguire <SengDesi dejesus - Last Filed: 07/14/19 08:25> Date of Encounter: 07/14/19 - Data of Consult Requesting Physician: Janice Abrams MD Primary Care Provider: Beth Baker CNP - Attending Attestation PAtient with recent surgical intervention on hip, previously on xarelto, Pe possibly related to recent events. Contnue with xarelto 20mg daily after IV hepa rin for car washer anticoagulation. Monitor Hgb/Hct. There is no role for IVC filter, unless patient cannot be anticoagulated/bleeding actively I examined this patient and my medical decision-making was reviewed with the Advanced Practice Nurse, Dasha Romero. I agree with the documented findings, disposition and treatment plan as described except to the extent set forth below. Inpatient Charges Provider: Dr. Deja Mcguire Consult - Inpatient: [id number]
[2019-07-13] MEDS ORDERED: Artificial Tears SOLN 15 ML BOTTLE BOTH EYES PRN (22:13)
[2019-07-14] MEDS: *HR* OxyCODONE Immed Rel 15 MG TABLET PO PRN ×2 (05:07→14:46)
[2019-07-14 07:17] LABS: Basophils # 0.1 K/mcL (0.0-0.2); Basophils % 0.9 %; Eosinophils # 0.4 K/mcL (0.0-0.6); Eosinophils % 5.9 %; Hematocrit 29.4 % (37.5-50.1); Immature Granulocytes % 0.3 % (0-4); Lymphocytes % 29.2 %; Mean Corpuscular HGB Conc 34.7 g/dL (31.6-35.5); Mean Corpuscular Hemoglobin 31.9 pg (28.0-33.3); Mean Corpuscular Volume 91.9 fL (83.0-100.0); Mean Platelet Volume 9.9 fL (9.4-12.4); Monocytes # 1.1 K/mcL (0.0-1.3); Monocytes % 15.2 %; Neutrophils # 3.4 K/mcL (1.6-8.9); Platelet Count 494 K/mcL (140-400); Red Cell Distribution Width 15.1 % (11.5-14.5); Segmented Neutrophils % 48.5 %
[2019-07-14 07:22] LABS: Hemoglobin 10.2 g/dL (12.9-16.9)
[2019-07-14 07:37] LABS: BUN/Creatinine Ratio 16 (6-26); Blood Urea Nitrogen 12 mg/dL (8-23); Calcium 8.2 mg/dL (8.6-10.3); Carbon Dioxide 29 mEq/L (23-29); Chloride 100 mEq/L (98-107); Glucose 109 mg/dL (70-105); Magnesium 1.9 mg/dL (1.6-2.6); Osmolality,Calculated 282 (280-300); Phosphorous 3.9 mg/dL (2.7-4.5); Potassium 3.9 mEq/L (3.5-5.1); Sodium 136 mEq/L (136-145); eGFR For African Americans > 60 (> 60); eGFR For Non-African Americans > 60 (> 60)
[2019-07-14] MEDS: Famotidine 20 MG TABLET PO SCH (08:46)
[2019-07-14 11:03] VITALS: BP 117/55
--- NOTE | 2019-07-14 11:16 | Discharge Summary ---
Orders not resulted at time of discharge: Pending orders 07/12/19 21:32 Culture,Wound [RM] Stat Date of Encounter: 07/14/19 Time of Encounter: 09:00 - Discharge Diagnosis (1) Pulmonary embolism Priority: Primary Status: Acute Assessment and Plan: 84 year old male past medical history of, OA status post remote right knee replacement and right hip replacement a week ago , A. fib on Xarelto and a CVA without residual weakness. He presented with 5 days of worsening pleuritic chest pain with associated shortness of breath on exertion. He he rates pain as above 8/10 nonradiating, predominantly on the right side with no relieving factors. Patient had his right knee replaced last week and it has been undergoing rehabilitation without difficulty. He denies fever, chills and cough. He was assessed with acute PE. CT scan showed solitary nonocclusive embolus in the posterior segment of the right lower lobe pulmonary artery with no evidence of infarct. Patient has been taking Xarelto for A. fib and states that he has been compliant. He was started on a heparin drip. Hematology and vascular surgery were consulted for anticoagulation management and possible IVC filter placement. Hematology recommend continuing xarelto and no indication for IVC filter at this time. He was discharged in a stable condition Qualifiers: Pulmonary embolism type: other Chronicity: acute Acute cor pulmonale presence: without acute cor pulmonale Qualified Code(s): I26.99 - Other pulmonary embolism without acute cor pulmonale (2) Afib Priority: Primary Status: Chronic Qualifiers: Atrial fibrillation type: chronic Qualified Code(s): I48.2 - Chronic atrial fibrillation (3) History of CVA (cerebrovascular accident) Priority: Primary Status: Chronic (4) DVT prophylaxis Priority: Primary Status: Acute Hospital course: Mr. Brown is a 84 year old male - Time Spent with Patient Total time spent providing and/or coordinating discharge services: - Discharge Medications Prescriptions: New Cyclobenzaprine [Flexeril] 5 mg PO TID PRN 5 Days #15 tablet PRN Reason: Chest Pain Continued Rivaroxaban [Xarelto] 20 mg PO QPM Ranitidine HCl [Acid Hospitality Associate] 150 mg PO BID Acetaminophen [Tylenol] 650 mg PO Q8H Atorvastatin Calcium [Lipitor] 40 mg PO DAILY Docusate Sodium [Dok] 200 mg PO DAILY OxyCODONE Immed Rel [Roxicodone 30 MG] 30 mg PO Q6H PRN 2 Days #16 PRN Reason: Severe Pain Home Medications: Rivaroxaban [Xarelto] 20 mg PO QPM 04/08/18 [History] Ranitidine HCl [Acid Hospitality Associate] 150 mg PO BID 07/04/19 [History] Acetaminophen [Tylenol] 650 mg PO Q8H 07/05/19 [History] Atorvastatin Calcium [Lipitor] 40 mg PO DAILY 07/05/19 [History] Docusate Sodium [Dok] 200 mg PO DAILY 07/05/19 [History] OxyCODONE Immed Rel [Roxicodone 30 MG] 30 mg PO Q6H PRN 2 Days #16 07/08/19 [Rx] Cyclobenzaprine [Flexeril] 5 mg PO TID PRN 5 Days #15 tablet 07/14/19 [Rx] Allergies/Adverse Reactions: Allergy/AdvReac Type Severity Reaction Status Date / Time lovastatin AdvReac Cramping Verified 07/13/19 13:10 of the Muscles Date of admission: 07/12/19 17:03 Primary care physician: Beth Baker CNP Consults: 07/12/19 16:39 Consult to Oncology Hematology [CONS] Stat Consulting Provider: Dasha Romero Reason for Consult: PE while on Xarelto. Heme/onc requests heparin; appreciate further recs Time Notified: 16:40 Call Completed: Yes 07/13/19 09:34 Consult to Vascular Surgery [CONS] Routine Consulting Provider: Vascular Surgery Gregoria Reason for Consult: PE on xarelto Call Completed: No 07/13/19 11:47 Consult to Occupational Therapy [CONS] Routine Comment: Evaluate, develop and implement POC Reason for Consult: Recent right hip replacement (07/05/19) Does patient have active BEDREST order?: No Is patient medically & hemodynamically stable?: Yes Consult to Physical Therapy [CONS] Routine Comment: Evaluate, develop and implement POC Reason for Consult: Recent right hip replacement (07/05/19) Does patient have active BEDREST order?: No Is patient medically & hemodynamically stable?: Yes - Constitutional Vitals: Temp Pulse Resp BP Pulse Ox 97.6 F 55 16 117/55 94 07/14/19 11:02 07/14/19 11:02 07/14/19 11:02 07/14/19 11:02 07/14/19 11:02 Exam: GENERAL: Not in distress. Alert and Oriented HEENT: EOMI, PERRLA MOUTH: Good oral hygiene NECK:No JVD, No lymph nodes. CHEST AND LUNGS: Normal breath sounds, no wheezes or crackles HEART: S1 and S2 normal, no murmurs ABDOMEN: Soft, nontender, no organomegaly SKIN: Normal color, no rahses, no lesions EXTREMITIES: Longitudinal surgical scar on right knee. Dressing over right hip looks clean. NEUROLOGICAL: Normal cognition, normal motor and sensory exam. - Patient Status Disposition: Home Health Service Condition: Fair - Discharge Instructions Instructions: Cyclobenzaprine (By mouth), Atrial Fibrillation (DC), Chest Pain (DC), Pulmonary Embolism (DC), Chronic Hypertension (DC) Follow Up With: Beth Baker CNP [Primary Care Provider] - 07/22/19 1:00 pm
[2019-07-14] MEDS ORDERED: *HR* Rivaroxaban 10 MG TABLET PO SCH (12:00)
--- NOTE | 2019-07-14 13:04 | Physician Discharge Referral ---
Home Health/Hosp Referral Info Transfer to: Home Health - Diagnosis (1) Pulmonary embolism Priority: Primary Status: Acute (2) Afib Priority: Primary Status: Acute (3) History of CVA (cerebrovascular accident) Priority: Primary Status: Acute (4) DVT prophylaxis Priority: Primary Status: Acute - Respiratory Orders Smoking Cessation: Smoking cessation has been advised. For more information, call the [place] Tobacco Quit Line at 6-118-XCKJ-NOW. - Diet/Nutrition Diet/Nutrition Orders: Cardiac - Activity Activity Orders: Ambulate - Services Needed Following services are medically necessary services: Nursing, Home Health Aide, Physical Therapy - Transfer Medications Prescriptions: Cyclobenzaprine [Flexeril] 5 mg PO TID PRN 5 Days #15 tablet PRN Reason: Chest Pain Home Medications: Rivaroxaban [Xarelto] 20 mg PO QPM 04/08/18 [History] Ranitidine HCl [Acid Postage Machine Operator] 150 mg PO BID 07/04/19 [History] Acetaminophen [Tylenol] 650 mg PO Q8H 07/05/19 [History] Atorvastatin Calcium [Lipitor] 40 mg PO DAILY 07/05/19 [History] Docusate Sodium [Dok] 200 mg PO DAILY 07/05/19 [History] OxyCODONE Immed Rel [Roxicodone 30 MG] 30 mg PO Q6H PRN 2 Days #16 07/08/19 [Rx] Cyclobenzaprine [Flexeril] 5 mg PO TID PRN 5 Days #15 tablet 07/14/19 [Rx] Allergies/Adverse Reactions: Allergy/AdvReac Type Severity Reaction Status Date / Time lovastatin AdvReac Cramping Verified 07/13/19 13:10 of the Muscles Certification: Further, I certify that my clinical findings support that this patient is homebound (i.e. absences from home require considerable and taxing effort and are for medical reasons or faith services or infrequently or short duration when for other reasons) because: Homebound Reason: Patient requires assistance of a person or device to safely leave home Attestation: My signature below is to certify that this patient is under my care and that I, or nurse practitioner, or a physician's child and youth program assistant working with me, has a [id number] encounter with this patient.
--- NOTE | 2019-07-14 13:32 | Vascular/Endovasc Consult Note ---
Date of Encounter: 07/14/19 Time of Encounter: 12:00 Assessment and Plan (1) Afib Current Visit: Yes Status: Chronic Patient has chronic atrial fibrillation. He is under cardiology care. Potential pacemaker pending outpatient cardiology evaluation. Qualifiers: Atrial fibrillation type: chronic Qualified Code(s): I48.2 - Chronic atrial fibrillation (2) Pulmonary embolism Current Visit: Yes Status: Acute Patient appears to have a new nonocclusive noninfarcted right lower lobe posterior segment pulmonary embolism. The patient is symptomatically improving. His O2 saturation is satisfactory. His breathing is more comfortable. He was seen earlier by oncology hematology which did not recommend an IVC filter at this time. Patient will be continued on a coagulation. Should he have a failure of anticoagulation with a recurrent pulmonary embolism or new DVT or should he have a complication of anticoagulation he will then need IVC filter placement. Qualifiers: Pulmonary embolism type: other Chronicity: acute Acute cor pulmonale presence: without acute cor pulmonale Qualified Code(s): I26.99 - Other pulmonary embolism without acute cor pulmonale (3) History of CVA (cerebrovascular accident) Current Visit: Yes Status: Chronic Patient has a history of stroke associated with his atrial fibrillation. - History of Present Illness Consult date: 07/14/19 Consult reason: Pulmonary embolism Chief complaint: Chest pain History of present illness: Mr. Brown is a 84 year old male Who was admitted via the emergency room on July 12. The patient has been complaining of 5 days of "rib" pain. This is worse with exertion. While in the emergency room a CT angiogram was performed. This demonstrated a right lower lobe posterior segment nonocclusive pulmonary embolism. There are no signs of infarction. There are no signs of pneumonia. Patient does have a hiatal hernia and some atelectasis. A venous duplex scan was negative for deep venous thrombosis. He does have a superficial thrombophlebitis. The patient was admitted and placed on intravenous heparin. Again this is the fact the patient has a long history of atrial fibrillation. He has been anticoagulated with Xarelto and has had a complication of a stroke from the atrial fibrillation. 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 The patient had fallen recently and had a right hip fracture which was treated approximately a week ago. He went to a rehabilitation facility but was dissatisfied with his care and went home and then had this persistent rib pain and then leading to his emergency room visit and hospitalization. While here the patient was admitted to the hospitalist service and was also seen by hematology oncology. The patient also notes at home he is variable heart rate and he records his heart rate sometimes as low as 40. He does not have a pacemaker in position. He is scheduled to see a anthropologist physical and was supposed to see the anthropologist physical today. Past Med Surg Social Fam HX - Past Medical History Medical history: atrial fibrillation, CVA, GERD, hyperlipidemia, hypertension, osteoporosis, other Additional medical history: HX OF MRSA , RT DROP FOOT, [place] Psychiatric history: no psych history - Past Surgical History Surgical History: hip replacement, knee replacement, other Additional surgical history: BULLET WOUNDS - Social History Smoking Status: Former smoker Smokeless Tobacco Status: No Alcohol use: occasionally Drug use: none - Family History Father Family Member Ethnicity: Non- Living Status: Hx Family Neurologic Disorders: Yes (CVA) Mother Family Member Ethnicity: Non- Living Status: Hx Family Cardiac Disorders: Yes (CAD) Brother Family Member Ethnicity: Non- Living Status: Hx Family Cardiac Disorders: Yes ([place], CABG) Sister Family Member Ethnicity: Non- Living Status: Hx Family Cardiac Disorders: Yes (Heart failure) Medications and Allergies Rivaroxaban [Xarelto] 20 mg PO QPM 04/08/18 [History] Ranitidine HCl [Acid Family Development Extension Specialist] 150 mg PO BID 07/04/19 [History] Acetaminophen [Tylenol] 650 mg PO Q8H 07/05/19 [History] Atorvastatin Calcium [Lipitor] 40 mg PO DAILY 07/05/19 [History] Docusate Sodium [Dok] 200 mg PO DAILY 07/05/19 [History] OxyCODONE Immed Rel [Roxicodone 30 MG] 30 mg PO Q6H PRN 2 Days #16 07/08/19 [Rx] Cyclobenzaprine [Flexeril] 5 mg PO TID PRN 5 Days #15 tablet 07/14/19 [Rx] Allergy/AdvReac Type Severity Reaction Status Date / Time lovastatin AdvReac Cramping Verified 07/13/19 13:10 of the Muscles All Systems Review: The remainder of the systems were reviewed and are negative Exam Vital Signs, Last 4 Hours Temp Pulse Resp BP Pulse Ox 07/14/19 11:02 97.6 F 55 16 117/55 94 General: Present: Conversant, No Apparent Distress HEENT: Present: Atraumatic, Normocephaly, Trachea midline Neck: Absent: JVD Cardiac: Present: Irregular Rhythm Lungs: Present: Decreased breath sounds, Other (Patient has crackles in the right base.) Neuro: Present: Alert and responsive, No focal deficits noted, Cranial nerves grossly intact Abdomen: Present: Soft, Non-tender Vascular: Present: Other (Patient has surgical scars on the right knee and at the right hip. He has mild edema of the right lower extremity. His calf is nontender on both sides. There is no signs of cellulitis.) Consult Discharge Plan - Plan Instructions: Cyclobenzaprine (By mouth), Atrial Fibrillation (DC), Chest Pain (DC), Pulmonary Embolism (DC), Chronic Hypertension (DC) Referrals: Beth Baker CNP [Primary Care Provider] - Prescriptions: Cyclobenzaprine [Flexeril] 5 mg PO TID PRN 5 Days #15 tablet PRN Reason: Chest Pain
== END 2019-07-14 15:11 | disposition home health service (06) ==
LOC: EMEROOARM 12:21 → 2NENU 12:21 → SUATTDRO 17:03 → 2NENU 18:29
PROVIDERS: ADMIT Internal Medicine Nephrology; ATTEND Internal Medicine

== ENCOUNTER 2019-11-16 12:26 | Observation (INO) ==
[2019-11-16] MEDS ORDERED: Aspirin 81 MG TAB.CHEW PO ONE (12:39)
[2019-11-16 13:04] LABS: Basophils % 0.8 %; Eosinophils # 0.1 K/mcL (0.0-0.6); Eosinophils % 1.3 %; Hematocrit 40.8 % (37.5-50.1); Immature Granulocytes % 0.2 % (0-4); Lymphocytes # 1.9 K/mcL (0.6-4.6); Lymphocytes % 35.9 %; Mean Corpuscular HGB Conc 34.3 g/dL (31.6-35.5); Mean Corpuscular Hemoglobin 30.8 pg (28.0-33.3); Mean Corpuscular Volume 89.7 fL (83.0-100.0); Mean Platelet Volume 10.1 fL (9.4-12.4); Monocytes # 0.6 K/mcL (0.0-1.3); Neutrophils # 2.6 K/mcL (1.6-8.9); Platelet Count 231 K/mcL (140-400); Red Blood Count 4.55 M/mcL (4.19-5.50); Red Cell Distribution Width 18.1 % (11.5-14.5); Segmented Neutrophils % 49.8 %; White Blood Count 5.2 K/mcL (4.3-11.1)
[2019-11-16 13:20] LABS: INR 1.6
[2019-11-16 13:22] LABS: Activated Partial Thrombo Time 31.8 Seconds (26.0-36.0)
[2019-11-16 13:41] LABS: BUN/Creatinine Ratio 16 (6-26); Blood Urea Nitrogen 14 mg/dL (8-23); Calcium 9.1 mg/dL (8.6-10.3); Carbon Dioxide 29 mEq/L (23-29); Chloride 101 mEq/L (98-107); Glucose 134 mg/dL (70-105); Lipase 3 Units/L (11-82); Osmolality,Calculated 290 (280-300); Potassium 3.8 mEq/L (3.5-5.1); Sodium 139 mEq/L (136-145); eGFR For African Americans > 60 (> 60); eGFR For Non-African Americans > 60 (> 60)
[2019-11-16 13:49] LABS: Troponin I 0.03 ng/mL (< 0.04)
[2019-11-16] MEDS ORDERED: Naloxone 0.4 MG/ML INJ IVP PRN (15:33)
[2019-11-16] MEDS ORDERED: Acetaminophen 325 MG TABLET PO PRN (15:33)
[2019-11-16] MEDS ORDERED: Ondansetron 4 MG/2 ML VIAL IVP PRN (15:33)
[2019-11-16] MEDS: *HR* OxyCODONE Oral Soln 5 MG/5 ML UD.LIQ PO PRN (20:31)
[2019-11-16] MEDS: Famotidine 20 MG TABLET PO SCH (20:31)
[2019-11-17 01:03] LABS: Basophils % 0.8 %; Eosinophils # 0.2 K/mcL (0.0-0.6); Eosinophils % 3.4 %; Hematocrit 37.6 % (37.5-50.1); Hemoglobin 12.7 g/dL (12.9-16.9); Immature Granulocytes % 0.2 % (0-4); Lymphocytes # 2.4 K/mcL (0.6-4.6); Lymphocytes % 46.4 %; Mean Corpuscular HGB Conc 33.8 g/dL (31.6-35.5); Mean Corpuscular Hemoglobin 30.9 pg (28.0-33.3); Mean Corpuscular Volume 91.5 fL (83.0-100.0); Mean Platelet Volume 10.5 fL (9.4-12.4); Monocytes # 0.6 K/mcL (0.0-1.3); Monocytes % 12.2 %; Platelet Count 192 K/mcL (140-400); Red Blood Count 4.11 M/mcL (4.19-5.50); Red Cell Distribution Width 17.8 % (11.5-14.5); White Blood Count 5.3 K/mcL (4.3-11.1)
[2019-11-17 01:21] LABS: BUN/Creatinine Ratio 16 (6-26); Blood Urea Nitrogen 12 mg/dL (8-23); Calcium 8.4 mg/dL (8.6-10.3); Carbon Dioxide 27 mEq/L (23-29); Chloride 106 mEq/L (98-107); Chol/HDL Ratio 2.2 (0-4.9); Glucose 101 mg/dL (70-105); Magnesium 1.8 mg/dL (1.6-2.6); Osmolality,Calculated 286 (280-300); Potassium 3.7 mEq/L (3.5-5.1); Sodium 138 mEq/L (136-145); eGFR For African Americans > 60 (> 60); eGFR For Non-African Americans > 60 (> 60)
[2019-11-17] MEDS ORDERED: Regadenoson 0.4 MG/5 ML SYRINGE IVP ONE ×2 (07:34→07:37)
[2019-11-17] MEDS: Famotidine 20 MG TABLET PO SCH (09:39)
[2019-11-17] MEDS: *HR* OxyCODONE Oral Soln 5 MG/5 ML UD.LIQ PO PRN (09:42)
[2019-11-17 14:34] VITALS: BP 142/80
[2019-11-17] MEDS ORDERED: *HR* Rivaroxaban 10 MG TABLET PO SCH (18:00)
== END 2019-11-17 16:23 | disposition home or self-care (01) ==
LOC: SUATTDRO → EMEROOARM 12:26 → 3BNU 12:26 → SUATTDRO 17:08 → 3BNU 17:53
PROVIDERS: ADMIT Pharmacist; ATTEND Pharmacist

== ENCOUNTER 2020-05-17 07:28 | Observation (INO) ==
[2020-05-17] MEDS ORDERED: *HR* Heparin 10,000 UNIT/10 ML VIAL ONE (07:35)
[2020-05-17] MEDS ORDERED: Heparin 1,000 UNITS/500 mL 500 ML ONE ×2 (07:35→09:11)
[2020-05-17] MEDS ORDERED: 0.9 % Sodium Chloride 1,000 ML ONE (07:35)
[2020-05-17] MEDS ORDERED: *HR* Midazolam HCl 2 MG/2 ML VIAL ONE ×3 (08:47→10:09)
[2020-05-17] MEDS ORDERED: *HR* FentaNYL (PF) 100 MCG/2 ML VIAL ONE (08:47)
[2020-05-17] MEDS: 0.9 % Sodium Chloride 1,000 ML IVC SCH (08:52)
[2020-05-17] MEDS ORDERED: ISOVUE-370 200 ML INFUS..BTL ONE (09:11)
[2020-05-17] MEDS ORDERED: Naloxone 0.4 MG/ML INJ IVP PRN (10:49)
[2020-05-17] MEDS ORDERED: Acetaminophen 325 MG TABLET PO PRN (13:39)
[2020-05-17] MEDS ORDERED: Ondansetron ODT 4 MG TAB.RAPDIS PO PRN (13:39)
[2020-05-17] MEDS ORDERED: Aspirin Enteric Coated 325 MG Tablet PO PRN (13:39)
[2020-05-17] MEDS: *HR* OxyCODONE Immed Rel 15 MG TABLET PO SCH ×3 (14:50→21:50)
[2020-05-17] MEDS ORDERED: *HR* Rivaroxaban 10 MG TABLET PO SCH (17:00)
[2020-05-18] MEDS: *HR* OxyCODONE Immed Rel 15 MG TABLET PO SCH ×4 (01:18→14:10)
[2020-05-18] MEDS: 0.9 % Sodium Chloride 1,000 ML IVC SCH (08:17)
[2020-05-18 11:21] VITALS: BP 125/73
== END 2020-05-18 15:39 | disposition home or self-care (01) ==
LOC: INVDIALAB 07:28 → 2NNU 07:28
PROVIDERS: ADMIT Internal Medicine Clinical Cardiac Electrophysiology; ATTEND Internal Medicine Clinical Cardiac Electrophysiology

== ENCOUNTER 2022-04-03 10:08 | Observation (INO) ==
[2022-04-03] MEDS ORDERED: Pantoprazole 40 MG VIAL IVP ONE (10:52)
[2022-04-03] MEDS ORDERED: 0.9 % Sodium Chloride 1,000 ML IVC ONE (11:32)
[2022-04-03 12:06] LABS: Basophils % 0.1 %; Hemoglobin 15.5 g/dL (12.9-16.9); Immature Granulocytes % 0.4 % (0-4); Lymphocytes # 0.7 K/mcL (0.6-4.6); Lymphocytes % 6.7 %; Mean Corpuscular HGB Conc 34.4 g/dL (31.6-35.5); Mean Corpuscular Hemoglobin 32.8 pg (28.0-33.3); Mean Corpuscular Volume 95.1 fL (83.0-100.0); Monocytes # 0.8 K/mcL (0.0-1.3); Monocytes % 8.6 %; Neutrophils # 8.1 K/mcL (1.6-8.9); Platelet Count 362 K/mcL (140-400); Red Blood Count 4.73 M/mcL (4.19-5.50); Red Cell Distribution Width 15.2 % (11.5-14.5); Segmented Neutrophils % 84.2 %; White Blood Count 9.6 K/mcL (4.3-11.1)
[2022-04-03 12:12] LABS: INR 2.1; Prothrombin Time 23.2 Seconds (9.4-12.1)
[2022-04-03 13:00] LABS: Acetaminophen 16 mcg/mL (10-20); Alanine Aminotransferase 25 Units/L (7-52); Albumin 3.7 g/dL (3.5-5.7); Albumin/Globulin Ratio 1.1 (1.1-2.2); Alkaline Phosphatase 190 Units/L (34-104); Aspartate Amino Transferase 48 Units/L (13-39); BUN/Creatinine Ratio 45 (6-26); Bilirubin,Total 1.1 mg/dL (0.3-1.0); Blood Urea Nitrogen 27 mg/dL (8-23); Calcium 8.6 mg/dL (8.6-10.3); Carbon Dioxide 24 mEq/L (23-29); Chloride 101 mEq/L (98-107); Ethanol < 10 mg/dL (Less than 10); Globulin 3.5 g/dL (2.4-3.5); Glucose 116 mg/dL (70-105); Lipase 18 Units/L (11-82); Osmolality,Calculated 292 (280-300); Potassium 3.7 mEq/L (3.5-5.1); Salicylate < 2.5 mg/dL (15.0-30.0); Sodium 138 mEq/L (136-145); Total Protein 7.2 g/dL (6.4-8.9); eGFR For African Americans > 60 (> 60); eGFR For Non-African Americans > 60 (> 60)
[2022-04-03 14:25] LABS: Amphetamine Screen,Urine Negative ng/mL (Cutoff=1000); Barbiturate Screen,Urine Negative ng/mL (Cutoff=200); Benzodiazepines Screen,Urine Negative ng/mL (Cutoff=200); Cannabinoid Screen,Urine Negative ng/mL (Cutoff = 50); Cocaine Screen,Urine Negative ng/mL (Cutoff= 300); Opiate Screen,Urine Negative ng/mL (Cutoff=300); Phencyclidine Screen,Urine Negative ng/mL (Cutoff=25)
[2022-04-03 14:34] LABS: Bilirubin,Urine Negative (Negative); Blood,Urine Small (Negative); Clarity,Urine Clear (Clear); Color,Urine Yellow (Yellow); Glucose,Urine (UA) Normal (Normal); Ketones,Urine 80 mg/dL (Negative); Leukocyte Esterase,Urine Negative (Negative); Mucus,Urine Few per lpf (None-Few); Nitrite,Urine Negative (Negative); Protein,Urine 30 mg/dL (Neg-Trace); RBC,Urine 15-30 per hpf (0-3); Specific Gravity,Urine > 1.030 (1.010-1.025); Urobilinogen,Urine Normal (Normal); WBC,Urine 0-3 per hpf (0-3)
[2022-04-03] MEDS ORDERED: Naloxone 0.4 MG/ML INJ IVP PRN (16:26)
[2022-04-03] MEDS ORDERED: Ondansetron 4 MG/2 ML VIAL IVP ONE (16:30)
[2022-04-03] MEDS ORDERED: 0.9 % Sodium Chloride 1,000 ML IVC SCH ×2 (16:30→17:00)
[2022-04-03] MEDS ORDERED: *HR* OxyCODONE Immed Rel 15 MG TABLET PO ONE (20:36)
[2022-04-04 01:46] LABS: Hematocrit 40.1 % (37.5-50.1); Hemoglobin 13.8 g/dL (12.9-16.9); Mean Corpuscular HGB Conc 34.4 g/dL (31.6-35.5); Mean Corpuscular Hemoglobin 32.9 pg (28.0-33.3); Mean Corpuscular Volume 95.5 fL (83.0-100.0); Mean Platelet Volume 9.9 fL (9.4-12.4); Platelet Count 316 K/mcL (140-400); Red Cell Distribution Width 15.1 % (11.5-14.5); White Blood Count 9.4 K/mcL (4.3-11.1)
[2022-04-04 02:07] LABS: BUN/Creatinine Ratio 42 (6-26); Blood Urea Nitrogen 22 mg/dL (8-23); Carbon Dioxide 25 mEq/L (23-29); Chloride 105 mEq/L (98-107); Glucose 97 mg/dL (70-105); Osmolality,Calculated 293 (280-300); Potassium 3.1 mEq/L (3.5-5.1); Sodium 140 mEq/L (136-145); eGFR For African Americans > 60 (> 60); eGFR For Non-African Americans > 60 (> 60)
[2022-04-04] MEDS ORDERED: *HR* OxyCODONE Immed Rel 15 MG TABLET PO ONE (06:06)
[2022-04-04 09:01] LABS: Alanine Aminotransferase 21 Units/L (7-52); Albumin 3.1 g/dL (3.5-5.7); Alkaline Phosphatase 164 Units/L (34-104); Aspartate Amino Transferase 37 Units/L (13-39); Bilirubin,Direct 0.2 mg/dL (0.0-0.2); Bilirubin,Indirect 0.7 mg/dL (0.0-1.0); Bilirubin,Total 0.9 mg/dL (0.3-1.0); Globulin 3.1 g/dL (2.4-3.5); Total Protein 6.2 g/dL (6.4-8.9)
[2022-04-04] MEDS: *HR* OxyCODONE Immed Rel 15 MG TABLET PO PRN ×3 (09:26→19:31)
[2022-04-04 15:27] VITALS: TEMP 97.7
[2022-04-04 20:01] VITALS: BP 108/66; PULSE 62; O2SAT 91
== END 2022-04-04 20:04 | disposition home health service (06) ==
LOC: 3ANU 10:08 → EMEROOARM 10:08 → SUATTDRO 15:53 → 3ANU 16:48
PROVIDERS: ADMIT Family Medicine; ATTEND Family Medicine

== ENCOUNTER 2022-08-23 17:02 | Inpatient (IN) ==
[2022-08-23] MEDS ORDERED: Morphine Sulfate 2 MG/ML SYRINGE IVP ONE (17:26)
[2022-08-23] MEDS ORDERED: Acetaminophen 325 MG TABLET PO PRN (19:27)
[2022-08-23] MEDS ORDERED: Naloxone 0.4 MG/ML INJ IVP PRN (19:27)
[2022-08-23] MEDS: Ondansetron 4 MG/2 ML VIAL IVP PRN (22:15)
[2022-08-24 01:43] LABS: Hematocrit 41.9 % (37.5-50.1); Hemoglobin 14.1 g/dL (12.9-16.9); Mean Corpuscular HGB Conc 33.7 g/dL (31.6-35.5); Mean Corpuscular Hemoglobin 31.5 pg (28.0-33.3); Mean Corpuscular Volume 93.5 fL (83.0-100.0); Mean Platelet Volume 9.1 fL (9.4-12.4); Platelet Count 357 K/mcL (140-400); Red Blood Count 4.48 M/mcL (4.19-5.50); Red Cell Distribution Width 15.3 % (11.5-14.5); White Blood Count 7.5 K/mcL (4.3-11.1)
[2022-08-24 01:57] LABS: INR 1.7
[2022-08-24 01:59] LABS: Activated Partial Thrombo Time 38.8 Seconds (26.0-36.0)
[2022-08-24 02:02] LABS: Calcium 8.8 mg/dL (8.6-10.3); Potassium 4.3 mEq/L (3.5-5.1)
[2022-08-24] MEDS ORDERED: *HR* HYDROmorphone (PF) 1 MG/ML SYRINGE IVP PRN (02:21)
[2022-08-24] MEDS ORDERED: *HR* Heparin 5,000 UNIT/ML VIAL SQ SCH (06:00)
[2022-08-24] MEDS ORDERED: Ketorolac 30 MG/ML VIAL IVP PRN (09:39)
[2022-08-24] MEDS: *HR* HYDROmorphone 2 MG/ML SYRINGE IVP PRN ×2 (14:46→20:04)
[2022-08-24] MEDS: *HR* Rivaroxaban 10 MG TABLET PO SCH (16:37)
[2022-08-24] MEDS: Ondansetron 4 MG/2 ML VIAL IVP PRN (18:54)
[2022-08-24] MEDS: Sennosides/Docusate Sodium TABLET PO SCH (20:04)
[2022-08-25] MEDS: *HR* HYDROmorphone 2 MG/ML SYRINGE IVP PRN (00:09)
[2022-08-25] MEDS: Sennosides/Docusate Sodium TABLET PO SCH ×2 (08:28→19:38)
[2022-08-25] MEDS: Ketorolac 30 MG/ML VIAL IVP PRN ×2 (08:58→23:06)
[2022-08-25] MEDS: *HR* Rivaroxaban 10 MG TABLET PO SCH (18:33)
[2022-08-25] MEDS: Ondansetron 4 MG/2 ML VIAL IVP PRN (19:34)
[2022-08-26] MEDS ORDERED: Furosemide 20 MG TABLET PO PRN (07:35)
[2022-08-26] MEDS ORDERED: Cholecalciferol (D-3) 1,000 UNIT (25MCG) TABLET PO SCH (09:00)
[2022-08-26] MEDS: Sennosides/Docusate Sodium TABLET PO SCH (09:16)
[2022-08-26] MEDS: Ketorolac 30 MG/ML VIAL IVP PRN (09:17)
[2022-08-26 11:41] VITALS: BP 132/72; PULSE 60; TEMP 98.2; O2SAT 97
== END 2022-08-26 16:00 | disposition home health service (06) | DRG 552 ==
LOC: EMEROOARM 17:02 → 4WAOSI 17:02 → SUATTDRO 18:34 → 4WAOSI 20:06 → SUATTDRO 08-24 22:51
PROVIDERS: ADMIT Internal Medicine; ATTEND Internal Medicine

== ENCOUNTER 2022-09-02 11:59 | Inpatient (IN) ==
[2022-09-02] MEDS ORDERED: Morphine Sulfate 2 MG/ML SYRINGE IVP PRN (18:53)
[2022-09-02 19:41] LABS: Basophils # 0.1 K/mcL (0.0-0.2); Basophils % 0.6 %; Eosinophils # 0.1 K/mcL (0.0-0.6); Hematocrit 45.7 % (37.5-50.1); Hemoglobin 15.2 g/dL (12.9-16.9); Immature Granulocytes % 0.2 % (0-4); Lymphocytes # 1.6 K/mcL (0.6-4.6); Lymphocytes % 18.2 %; Mean Corpuscular HGB Conc 33.3 g/dL (31.6-35.5); Mean Corpuscular Hemoglobin 31.4 pg (28.0-33.3); Mean Corpuscular Volume 94.4 fL (83.0-100.0); Mean Platelet Volume 10.2 fL (9.4-12.4); Monocytes # 0.9 K/mcL (0.0-1.3); Monocytes % 10.4 %; Neutrophils # 6.2 K/mcL (1.6-8.9); Platelet Count 384 K/mcL (140-400); Red Blood Count 4.84 M/mcL (4.19-5.50); Red Cell Distribution Width 15.3 % (11.5-14.5); Segmented Neutrophils % 69.6 %; White Blood Count 8.9 K/mcL (4.3-11.1)
[2022-09-02] MEDS ORDERED: *HR* FentaNYL (PF) 100 MCG/2 ML VIAL IVP ONE (20:06)
[2022-09-02 20:13] LABS: Potassium 4.1 mEq/L (3.5-5.1)
[2022-09-02] MEDS ORDERED: *HR* HYDROmorphone 2 MG TABLET PO ONE (22:21)
[2022-09-02] MEDS ORDERED: tiZANidine 4 MG TABLET PO ONE (22:23)
[2022-09-02] MEDS ORDERED: NON-FORMULARY MEDICATION 1 EACH EACH (Alendronate Sodium [Fosamax] 70 MG Tablet) PO SCH (22:30)
[2022-09-02] MEDS ORDERED: Naloxone 0.4 MG/ML INJ IVP PRN (23:00)
[2022-09-02] MEDS ORDERED: Acetaminophen 325 MG TABLET PO PRN (23:00)
[2022-09-02] MEDS ORDERED: Ondansetron 4 MG/2 ML VIAL IVP PRN (23:00)
[2022-09-03] MEDS ORDERED: Acetaminophen IV 1,000 MG/100 ML BAG IVPB ONE (02:03)
[2022-09-03 02:32] LABS: Hematocrit 40.1 % (37.5-50.1); Mean Corpuscular HGB Conc 33.4 g/dL (31.6-35.5); Mean Corpuscular Hemoglobin 30.7 pg (28.0-33.3); Mean Corpuscular Volume 91.8 fL (83.0-100.0); Mean Platelet Volume 10.4 fL (9.4-12.4); Platelet Count 341 K/mcL (140-400); Red Blood Count 4.37 M/mcL (4.19-5.50); Red Cell Distribution Width 15.2 % (11.5-14.5); White Blood Count 7.1 K/mcL (4.3-11.1)
[2022-09-03 02:37] LABS: Hemoglobin 13.4 g/dL (12.9-16.9)
[2022-09-03 04:54] LABS: BUN/Creatinine Ratio 22 (6-26); Blood Urea Nitrogen 14 mg/dL (8-23); Calcium 8.4 mg/dL (8.6-10.3); Carbon Dioxide 20 mEq/L (23-29); Chloride 104 mEq/L (98-107); Chol/HDL Ratio 3.4 (0-4.9); Cholesterol 185 mg/dL (< 200); Glucose 95 mg/dL (70-105); HDL Cholesterol 55 mg/dL (40-59); LDL Cholesterol,Calculated 116 mg/dL (< 100); Magnesium 1.9 mg/dL (1.6-2.6); Osmolality,Calculated 282 (280-300); Potassium 3.9 mEq/L (3.5-5.1); Sodium 136 mEq/L (136-145); Triglycerides 69 mg/dL (< 150)
[2022-09-03 05:37] LABS: Troponin I 0.03 ng/mL (< 0.04)
[2022-09-03] MEDS ORDERED: *HR* Rivaroxaban 10 MG TABLET PO SCH (09:00)
[2022-09-03] MEDS ORDERED: Naloxone 0.4 MG/ML INJ IVP PRN (11:10)
[2022-09-03] MEDS: *HR* OxyCODONE Immed Rel 5 MG TABLET PO PRN ×2 (11:32→18:48)
[2022-09-03] MEDS: *HR* HYDROcodone/Acet 5/325 mg TABLET PO PRN ×2 (16:10→23:11)
[2022-09-04] MEDS: *HR* OxyCODONE Immed Rel 5 MG TABLET PO PRN ×3 (04:12→21:04)
[2022-09-04 11:09] LABS: Basophils % 0.6 %; Eosinophils # 0.2 K/mcL (0.0-0.6); Eosinophils % 2.6 %; Hematocrit 41.2 % (37.5-50.1); Hemoglobin 13.6 g/dL (12.9-16.9); Immature Granulocytes % 0.1 % (0-4); Lymphocytes % 28.7 %; Mean Corpuscular Hemoglobin 30.8 pg (28.0-33.3); Mean Corpuscular Volume 93.4 fL (83.0-100.0); Mean Platelet Volume 9.9 fL (9.4-12.4); Monocytes # 0.8 K/mcL (0.0-1.3); Monocytes % 11.4 %; Neutrophils # 3.9 K/mcL (1.6-8.9); Platelet Count 364 K/mcL (140-400); Red Blood Count 4.41 M/mcL (4.19-5.50); Red Cell Distribution Width 15.6 % (11.5-14.5); Segmented Neutrophils % 56.6 %; White Blood Count 6.8 K/mcL (4.3-11.1)
[2022-09-04 11:38] LABS: Calcium 8.3 mg/dL (8.6-10.3); Magnesium 1.9 mg/dL (1.6-2.6)
[2022-09-04] MEDS: *HR* HYDROcodone/Acet 5/325 mg TABLET PO PRN (18:02)
[2022-09-05] MEDS: *HR* HYDROcodone/Acet 5/325 mg TABLET PO PRN (00:17)
[2022-09-05] MEDS: *HR* OxyCODONE Immed Rel 5 MG TABLET PO PRN ×3 (03:51→23:15)
[2022-09-05 04:35] LABS: Basophils % 0.6 %; Eosinophils # 0.2 K/mcL (0.0-0.6); Eosinophils % 3.3 %; Hemoglobin 13.3 g/dL (12.9-16.9); Immature Granulocytes % 0.2 % (0-4); Lymphocytes # 2.2 K/mcL (0.6-4.6); Lymphocytes % 34.9 %; Mean Corpuscular HGB Conc 33.3 g/dL (31.6-35.5); Mean Corpuscular Hemoglobin 31.1 pg (28.0-33.3); Mean Corpuscular Volume 93.5 fL (83.0-100.0); Mean Platelet Volume 9.9 fL (9.4-12.4); Monocytes # 0.8 K/mcL (0.0-1.3); Monocytes % 12.7 %; Neutrophils # 3.1 K/mcL (1.6-8.9); Platelet Count 362 K/mcL (140-400); Red Blood Count 4.28 M/mcL (4.19-5.50); Red Cell Distribution Width 15.7 % (11.5-14.5); Segmented Neutrophils % 48.3 %; White Blood Count 6.4 K/mcL (4.3-11.1)
[2022-09-05 05:02] LABS: BUN/Creatinine Ratio 26 (6-26); Blood Urea Nitrogen 17 mg/dL (8-23); Calcium 8.1 mg/dL (8.6-10.3); Carbon Dioxide 26 mEq/L (23-29); Chloride 105 mEq/L (98-107); Glucose 99 mg/dL (70-105); Magnesium 1.9 mg/dL (1.6-2.6); Osmolality,Calculated 280 (280-300); Sodium 134 mEq/L (136-145)
[2022-09-05] MEDS ORDERED: CeFAZolin Syr 2,000MG/20 ML 2,000 MG/20 ML SYRINGE IVPB ONE ×2 (12:11→16:13)
[2022-09-05] MEDS ORDERED: *HR* Rocuronium Bromide 50 MG/5 ML VIAL ONE (13:30)
[2022-09-05] MEDS ORDERED: Ondansetron 4 MG/2 ML VIAL ONE (13:30)
[2022-09-05] MEDS ORDERED: Lidocaine HCL 4 ML Topical Solution (Laryng-O-Jet Kit Sterile Pak) TP ONE (13:30)
[2022-09-05] MEDS ORDERED: Lidocaine -MPF 2% 2 ML VIAL ONE ×2 (13:30→15:08)
[2022-09-05] MEDS ORDERED: *HR* Succinylcholine 200 MG/10 ML VIAL IVP ONE (13:30)
[2022-09-05] MEDS ORDERED: *HR* FentaNYL (PF) 100 MCG/2 ML VIAL ONE (13:31)
[2022-09-05] MEDS ORDERED: Ondansetron 4 MG/2 ML VIAL IVP PRN ×2 (14:13→16:13)
[2022-09-05] MEDS ORDERED: *HR* HYDROmorphone PF 0.5 MG/0.5 ML SYRINGE IVP PRN ×2 (14:13→16:23)
[2022-09-05] MEDS ORDERED: EPHEDrine sulfate 50 MG/10 ML VIAL IVP ONE (14:28)
[2022-09-05] MEDS ORDERED: Iopamidol - 300 50 ML VIAL ONE (14:39)
[2022-09-05] MEDS: *HR* FentaNYL (PF) 100 MCG/2 ML VIAL IVP PRN ×2 (16:04→16:11)
[2022-09-05] MEDS ORDERED: Furosemide 20 MG TABLET PO PRN (16:13)
[2022-09-05] MEDS ORDERED: *HR* HYDROcodone/Acet 5/325 mg TABLET PO PRN (16:13)
[2022-09-05] MEDS ORDERED: Ringers Solution, Lactated 1,000 ML IVC SCH (16:13)
[2022-09-05] MEDS: CeFAZolin 2 GM/120 ML BAG IVPB SCH (18:19)
[2022-09-05] MEDS: Sennosides/Docusate Sodium TABLET PO SCH (19:45)
[2022-09-06] MEDS: CeFAZolin 2 GM/120 ML BAG IVPB SCH (00:21)
[2022-09-06] MEDS: *HR* OxyCODONE Immed Rel 5 MG TABLET PO PRN ×5 (03:32→23:42)
[2022-09-06] MEDS: Sennosides/Docusate Sodium TABLET PO SCH ×2 (07:40→19:05)
[2022-09-06 13:54] LABS: Basophils # 0.1 K/mcL (0.0-0.2); Basophils % 0.6 %; Eosinophils # 0.1 K/mcL (0.0-0.6); Eosinophils % 1.6 %; Hemoglobin 13.5 g/dL (12.9-16.9); Immature Granulocytes % 0.1 % (0-4); Lymphocytes % 23.2 %; Mean Corpuscular HGB Conc 33.8 g/dL (31.6-35.5); Mean Corpuscular Hemoglobin 31.3 pg (28.0-33.3); Mean Corpuscular Volume 92.8 fL (83.0-100.0); Mean Platelet Volume 9.4 fL (9.4-12.4); Monocytes % 11.1 %; Neutrophils # 5.5 K/mcL (1.6-8.9); Platelet Count 380 K/mcL (140-400); Red Blood Count 4.31 M/mcL (4.19-5.50); Red Cell Distribution Width 15.2 % (11.5-14.5); Segmented Neutrophils % 63.4 %; White Blood Count 8.6 K/mcL (4.3-11.1)
[2022-09-06 14:18] LABS: BUN/Creatinine Ratio 18 (6-26); Blood Urea Nitrogen 10 mg/dL (8-23); Calcium 8.5 mg/dL (8.6-10.3); Carbon Dioxide 27 mEq/L (23-29); Chloride 105 mEq/L (98-107); Glucose 117 mg/dL (70-105); Magnesium 1.9 mg/dL (1.6-2.6); Osmolality,Calculated 282 (280-300); Potassium 3.9 mEq/L (3.5-5.1); Sodium 136 mEq/L (136-145)
[2022-09-06] MEDS: *HR* Rivaroxaban 10 MG TABLET PO SCH (17:46)
[2022-09-06] MEDS: Acetaminophen 325 MG TABLET PO PRN (20:54)
[2022-09-07] MEDS: *HR* OxyCODONE Immed Rel 5 MG TABLET PO PRN ×4 (03:23→20:37)
[2022-09-07] MEDS: Sennosides/Docusate Sodium TABLET PO SCH ×2 (09:19→18:59)
[2022-09-07 10:52] LABS: Basophils # 0.1 K/mcL (0.0-0.2); Basophils % 0.7 %; Eosinophils # 0.2 K/mcL (0.0-0.6); Eosinophils % 2.8 %; Hematocrit 43.2 % (37.5-50.1); Hemoglobin 14.3 g/dL (12.9-16.9); Immature Granulocytes % 0.3 % (0-4); Lymphocytes % 27.3 %; Mean Corpuscular HGB Conc 33.1 g/dL (31.6-35.5); Mean Corpuscular Hemoglobin 30.8 pg (28.0-33.3); Mean Corpuscular Volume 93.1 fL (83.0-100.0); Mean Platelet Volume 9.8 fL (9.4-12.4); Monocytes # 0.8 K/mcL (0.0-1.3); Monocytes % 11.3 %; Neutrophils # 4.1 K/mcL (1.6-8.9); Platelet Count 385 K/mcL (140-400); Red Blood Count 4.64 M/mcL (4.19-5.50); Red Cell Distribution Width 15.5 % (11.5-14.5); Segmented Neutrophils % 57.6 %; White Blood Count 7.2 K/mcL (4.3-11.1)
[2022-09-07 11:11] LABS: BUN/Creatinine Ratio 19 (6-26); Blood Urea Nitrogen 13 mg/dL (8-23); Calcium 8.6 mg/dL (8.6-10.3); Carbon Dioxide 27 mEq/L (23-29); Chloride 105 mEq/L (98-107); Glucose 102 mg/dL (70-105); Magnesium 1.7 mg/dL (1.6-2.6); Osmolality,Calculated 284 (280-300); Potassium 3.7 mEq/L (3.5-5.1); Sodium 137 mEq/L (136-145)
[2022-09-07] MEDS: *HR* Rivaroxaban 10 MG TABLET PO SCH (15:55)
[2022-09-07] MEDS: *HR* HYDROcodone/Acet 5/325 mg TABLET PO PRN (18:59)
[2022-09-08] MEDS: *HR* OxyCODONE Immed Rel 5 MG TABLET PO PRN ×5 (00:29→22:24)
[2022-09-08] MEDS: Sennosides/Docusate Sodium TABLET PO SCH ×2 (09:01→22:24)
[2022-09-08] MEDS: *HR* Rivaroxaban 10 MG TABLET PO SCH (17:13)
[2022-09-08] MEDS: *HR* HYDROcodone/Acet 5/325 mg TABLET PO PRN (17:16)
[2022-09-09] MEDS: *HR* HYDROcodone/Acet 5/325 mg TABLET PO PRN ×2 (00:07→06:20)
[2022-09-09] MEDS: *HR* OxyCODONE Immed Rel 5 MG TABLET PO PRN ×3 (04:29→13:43)
[2022-09-09 05:35] LABS: Basophils # 0.1 K/mcL (0.0-0.2); Eosinophils # 0.3 K/mcL (0.0-0.6); Eosinophils % 4.5 %; Hematocrit 38.4 % (37.5-50.1); Immature Granulocytes % 0.2 % (0-4); Lymphocytes # 2.3 K/mcL (0.6-4.6); Mean Corpuscular HGB Conc 33.9 g/dL (31.6-35.5); Mean Corpuscular Hemoglobin 31.1 pg (28.0-33.3); Mean Corpuscular Volume 91.9 fL (83.0-100.0); Mean Platelet Volume 9.9 fL (9.4-12.4); Monocytes # 0.8 K/mcL (0.0-1.3); Monocytes % 14.3 %; Neutrophils # 2.4 K/mcL (1.6-8.9); Platelet Count 350 K/mcL (140-400); Red Blood Count 4.18 M/mcL (4.19-5.50); Red Cell Distribution Width 15.4 % (11.5-14.5); White Blood Count 5.8 K/mcL (4.3-11.1)
[2022-09-09 05:53] LABS: BUN/Creatinine Ratio 29 (6-26); Blood Urea Nitrogen 17 mg/dL (8-23); Calcium 8.2 mg/dL (8.6-10.3); Carbon Dioxide 26 mEq/L (23-29); Chloride 105 mEq/L (98-107); Glucose 101 mg/dL (70-105); Magnesium 1.6 mg/dL (1.6-2.6); Osmolality,Calculated 284 (280-300); Potassium 3.8 mEq/L (3.5-5.1); Sodium 136 mEq/L (136-145)
[2022-09-09] MEDS: Sennosides/Docusate Sodium TABLET PO SCH (08:22)
[2022-09-09] MEDS: Acetaminophen 325 MG TABLET PO PRN (11:30)
[2022-09-09 11:38] VITALS: BP 106/63; PULSE 80; TEMP 98; O2SAT 97
[2022-09-09 14:03] LABS: Influenza A PCR Negative (Negative); Influenza B PCR Negative (Negative); Resp. Syncytial Virus PCR Negative (Negative)
[2022-09-09 15:11] LABS: SARS-CoV-2 by PCR (In House) Negative (Negative)
[2022-09-09] MEDS: *HR* Rivaroxaban 10 MG TABLET PO SCH (16:23)
== END 2022-09-09 17:35 | DRG 516 ==
LOC: EMEROOARM 11:59 → 4WAOSI 11:59 → SUATTDRO 20:57 → 4WAOSI 21:23
PROVIDERS: ADMIT Internal Medicine; ATTEND Pharmacist